=== PATIENT | male | born 1935 | race Caucasian/White ===

== ENCOUNTER 2017-01-29 12:16 | Inpatient (IN) | payer OTHER, MEDICARE ==
[~2017-01-29] VITALS: Ht 162.6 cm; Wt 66.7 kg
[~2017-01-29 12:16] MED LIST: ASPI325T4 PO; ATOR-22 PO; CARV6.25 PO; LISI-725 PO
[2017-01-29 12:55] LABS: BASO % 0.5 %; BASO ABS # 0.03 K/uL (0-0.2); COMPLETE YES; EOS % 2.7 %; HEMATOCRIT 38.2 % (42-52); IG% 0.3 %; LYMPH % 18.5 %; LYMPH ABS # 1.23 K/uL (1.2-3.4); MEAN CELL VOLUME 86.8 fL (80-100); MEAN CORPUSCULAR HEMOGLOBIN 28.6 pg (25-34); MEAN PLATELET VOLUME 9.4 fL (7.4-10.4); MONO % 12.5 %; NEUT % 65.5 %; PLATELET COUNT 173 K/uL (130-400); WHITE BLOOD COUNT 6.64 K/uL (4.8-10.8)
[2017-01-29 13:12] LABS: BUN/CREATININE RATIO 21.5 (10-20); CALCIUM 8.9 mg/dl (8.5-10.1); CREATININE 1.5 mg/dl (0.60-1.40); POTASSIUM 4.3 mmol/L (3.5-5.1)
--- NOTE | 2017-01-29 13:13 | DIAGNOSTIC IMAGING REPORT ---
SINGLE VIEW PELVIS CLINICAL HISTORY: Fall with left hip pain. FINDINGS: An AP pelvic radiograph is obtained. No prior studies are available for comparison at the time of dictation. The skeletal structures are osteopenic. There is a distracted and angulated oblique fracture through the subtrochanteric left femur. Overlying soft tissue edema is noted. No additional fracture is seen in the right hip or the bony pelvis. Moderate arthritic change is noted in the hips. Lumbosacral spondylosis is partially imaged. There is a nonobstructed abdominal bowel gas pattern. IMPRESSION: 1. Distracted and angulated subtrochanteric fracture of the left femur with overlying soft tissue edema. 2. No additional fracture is identified in the bony pelvis or right hip. 3. Osteopenia and degenerative change as above. Electronically signed by: Gómez Santana M.D. 01/29/2017 1:12 PM Dictated Date/Time: 01/29/2017 1:10 PM
[2017-01-29 13:15] LABS: ALB/GLOB RATIO 1.1 (0.9-2)
[2017-01-29] MEDS ORDERED: MoRPHine SULFATE 4 MG/ML 1 ML CARP\\VIAL IV STA ×2 (13:15→13:17)
--- NOTE | 2017-01-29 13:16 | DIAGNOSTIC IMAGING REPORT ---
LEFT FEMUR 2 VIEWS CLINICAL HISTORY: Left hip injury. Fall. FINDINGS: AP and crosstable lateral views of the left femur are correlated with pelvic radiograph performed concurrently on 01/29/2017. The skeletal structures are osteopenic. There is an angulated spiral fracture through the subtrochanteric left femur. There is posterior distraction of the distal fragment by at least 3 cm. There is also mild overriding of the fragments. The distal femur is intact. Arthritic change is present in the left hip and knee. The visualized left hemipelvis appears intact. Significant soft tissue edema is present in the upper thigh. Atherosclerotic calcification is noted in the femoral and popliteal arteries. IMPRESSION: 1. There is a distracted, angulated, and mildly overriding fracture of the subtrochanteric left femur. 2. The remainder of the femur appears intact. 3. Soft tissue edema is present in the left upper thigh. Electronically signed by: Gómez Santana M.D. 01/29/2017 1:14 PM Dictated Date/Time: 01/29/2017 1:12 PM
[2017-01-29] MEDS ORDERED: SODIUM CHLORIDE 0.9% 1000ML 1,000 ML IV STA (13:17)
--- NOTE | 2017-01-29 13:17 | DIAGNOSTIC IMAGING REPORT ---
SINGLE VIEW CHEST CLINICAL HISTORY: Fall. Left leg injury. FINDINGS: An AP, portable, supine chest radiograph is compared to study dated 12/25/2013. The examination is degraded by portable technique and patient rotation. The heart is mildly enlarged and there is atherosclerotic calcification of the thoracic aorta. The pulmonary vasculature is noncongested. The lungs and pleural spaces are clear. No pneumothorax is seen. The skeletal structures are osteopenic. The bony thorax is grossly intact. IMPRESSION: Mild cardiac enlargement with no acute cardiopulmonary abnormality. Electronically signed by: Gómez Santana M.D. 01/29/2017 1:15 PM Dictated Date/Time: 01/29/2017 1:14 PM
[2017-01-29] MEDS ORDERED: OPTIRAY 320 IV PRN (13:30)
[2017-01-29 13:50] LABS: PARTIAL THROMBOPLASTIN RATIO 0.8; PROTHROMBIN TIME (PATIENT) 10.9 SECONDS (9.0-12.0)
--- NOTE | 2017-01-29 13:58 | DIAGNOSTIC IMAGING REPORT ---
CT SCAN OF THE BRAIN WITHOUT IV CONTRAST CLINICAL HISTORY: Fall with head injury. COMPARISON STUDY: MRI of the brain dated 03/26/2016. TECHNIQUE: Unenhanced axial CT scan of the brain is performed from the vertex to the skull base. FINDINGS: Brain parenchyma: There are age-related involutional changes noting mild subcortical and periventricular microangiopathic change. There is no hemorrhage, mass effect, or evidence of acute territorial ischemia by CT criteria. López-white matter is preserved. No extra-axial fluid collection is seen. Ventricles, sulci, cisterns: Prominent secondary to involutional change. Intracranial vasculature: There is atherosclerotic calcification of the cavernous carotid arteries. Calvarium: The skeletal structures are osteopenic. There is no depressed calvarial fracture. Sinuses and mastoids: The visualized paranasal sinuses are clear. The mastoid air cells are well pneumatized. Soft tissue calcification is incidentally noted involving the external auditory canal bilaterally. Orbits: The bony orbits are grossly intact. IMPRESSION: There is no hemorrhage, mass effect, or evidence of acute territorial ischemia by CT criteria. Electronically signed by: Gómez Santana M.D. 01/29/2017 1:51 PM Dictated Date/Time: 01/29/2017 1:49 PM
--- NOTE | 2017-01-29 13:58 | DIAGNOSTIC IMAGING REPORT ---
CT SCAN OF THE CERVICAL SPINE CLINICAL HISTORY: Trauma. Fall from ladder. COMPARISON STUDY: No priors. TECHNIQUE: CT scan of the cervical spine is performed from the skull base to the upper thoracic spine. Images are reviewed in the axial, sagittal, and coronal planes. IV contrast was not administered for this examination. FINDINGS: Skeletal structures: The skeletal structures are osteopenic. There is no evidence of fracture or subluxation involving the cervical spine. Vertebral body height and alignment are maintained. The odontoid process and lateral masses are intact. The atlantoaxial articulation is preserved noting productive degenerative change. The spinous processes appear intact. Anterior osteophytes are seen throughout. There is moderate multilevel cervical spondylosis. Uncovertebral and facet arthropathy contribute sterile foraminal narrowing at several levels. Intervertebral discs: There is moderate degenerative disc space narrowing at C5-C6, C6-C7, and C7-T1. Central canal: Posterior disc osteophyte complexes at C5-C6 and C6-C7 likely contribute to mild acquired compromise of the central canal. Soft tissues: The prevertebral and paraspinous soft tissues are within normal limits. There is advanced atherosclerotic calcification of the carotid bulbs. Calcified tonsilliths are observed. Calvarium: The visualized calvarium at the skull base appears intact. Brain parenchyma: Partially visualized brain parenchyma the skull base is within normal limits noting age-related involutional change. Sinuses and mastoids: The visualized paranasal sinuses are clear. The mastoid air cells are well pneumatized. Lung apices: Clear as visualized. IMPRESSION: 1. There is no evidence of fracture or subluxation involving the cervical spine. 2. Osteopenia and spondylotic change as above. Electronically signed by: Gómez Santana M.D. 01/29/2017 1:56 PM Dictated Date/Time: 01/29/2017 1:52 PM
--- NOTE | 2017-01-29 14:17 | DIAGNOSTIC IMAGING REPORT ---
CT SCAN OF THE CHEST, ABDOMEN, AND PELVIS WITH IV CONTRAST CLINICAL HISTORY: Trauma. Fall from ladder. COMPARISON STUDY: Chest x-ray dated 01/29/2017. Renal ultrasound dated 12/08/2012. TECHNIQUE: Following the IV administration of 93 of Optiray 320, CT scan of the chest, abdomen, and pelvis was performed from the thoracic inlet to the proximal femora. Images are reviewed in the axial, sagittal, and coronal planes. IV contrast was administered without complication. Automated dose control exposure was utilized. The examination is degraded by streak artifact from the patient's arms which could not be elevated above the chest. CT DOSE: 2460.04 mGy.cm FINDINGS: CHEST: Thyroid: Imaged portions of the thyroid gland are normal in size and attenuation. Thoracic aorta: There is atherosclerotic calcification of the thoracic aorta, which is normal in caliber and demonstrates standard 3-vessel arch anatomy. No dissection is seen. Pulmonary vasculature: The pulmonary trunk is normal in caliber. There are no filling defects identified in the central pulmonary vessels to indicate pulmonary was. Note that this examination was not protocoled for evaluation of the pulmonary arteries. Heart: The heart is mildly enlarged and without pericardial effusion. There are coronary artery calcifications. Lungs and pleural spaces: There is no airspace consolidation, pleural effusion, or pneumothorax. The trachea and central airways are clear. Mediastinum: There is no mediastinal hematoma or lymphadenopathy. Krissy: Clear. Axillae: There is no axillary lymphadenopathy. Bony thorax: The skeletal structures are osteopenic. There are mild and age indeterminant superior endplate compression deformities of T4 and T6. The bony thorax is otherwise intact. No lytic or blastic lesions are identified. ABDOMEN AND PELVIS: Liver: The contrast-enhanced liver is normal in size, contour, and attenuation. There is no intrahepatic or ductal dilatation. The hepatic veins and portal veins are patent. Gallbladder: Unremarkable. Spleen: Normal in size and attenuation. Pancreas: Moderately atrophic and grossly unremarkable. Adrenal glands: Unremarkable. Kidneys: The contrast enhanced kidneys are atrophic and without hydronephrosis. The kidneys enhance symmetrically. Renal cysts measure up to 5.5 cm. Additional subcentimeter cortical hypodensities also likely represent cysts but are too small for definitive characterization. Abdominal vasculature: The abdominal aorta is normal in course and caliber noting moderate atherosclerotic calcification. 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 There is mild stenosis at the origin of the celiac artery with poststenotic dilatation which measures up to 10 mm. Bowel: The small bowel and colon are normal in course and caliber. There is mild colonic diverticulosis without CT evidence of acute diverticulitis. The appendix is well-visualized and normal. Peritoneum: There is no intraperitoneal free air or abdominal ascites. There is a small fat-containing umbilical hernia. Lymphadenopathy: None. Pelvic viscera: The prostate gland is enlarged and heterogeneous, measuring 5.5 cm in transverse diameter. There is median lobe hypertrophy. The bladder is normal as visualized. Skeletal structures: The skeletal structures are osteopenic. The lumbosacral spine and bony pelvis appear intact. There is a comminuted fracture of the left proximal femur. Nondistracted fracture is seen through the left femoral neck and extending through the intertrochanteric region. There is distracted fracture of the subtrochanteric left femur. No lytic or blastic lesions are seen. Moderate lumbosacral spondylosis is observed. Soft tissues: There is a large hematoma in the left thigh around the distracted fracture, and is likely at least partially intramuscular in location. This measures approximately 9.5 x 6 cm in maximum transaxial diameter. Small foci of active extravasation are seen within the hematoma on axial images #443, #464, and #482. These measure up to 1.7 cm. This is remote from the femoral artery. IMPRESSION: 1. The lungs are clear. No pneumothorax is seen. 2. Cardiomegaly. 3. There are mild and age indeterminant superior end plate compression deformities of T4 and T6. Correlate for point tenderness at these levels. The remainder the bony thorax appears intact. 4. There is no evidence of solid organ injury in the abdomen or pelvis. 5. The lumbosacral spine and bony pelvis are intact. 6. There is a comminuted fracture of the left proximal femur which involves the femoral neck, the intertrochanteric region, and the subtrochanteric region. The subtrochanteric fragments are distracted. 7. There is a large hematoma identified in the left thigh around the left femoral fracture. This is at least partially intramuscular, and there are several small foci of active extravasation identified which measure up to 1.7 cm. 8. Mild colonic diverticulosis without CT evidence of acute diverticulitis. 9. Prostatomegaly. 10. 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 11. There is mild stenosis at the origin of the celiac artery with poststenotic dilatation. 12. Additional findings as above. Electronically signed by: Gómez Santana M.D. 01/29/2017 2:16 PM Dictated Date/Time: 01/29/2017 1:57 PM
--- NOTE | 2017-01-29 14:29 | EMERGENCY ROOM VISIT NOTE ---
History First contact with patient: 13:27 Chief Complaint: FALL Stated Complaint: FELL FROM LADDER/ 5' LF LEG DEFORMITY History of Present Illness The patient is a 81 year old male who presents to the Emergency Room with complaints of a fall. The patient was on his deck approximately 3 steps up on a stepping stool when he describes that he lost consciousness and fell. He does not recall falling to the ground and was out of consciousness for several minutes until EMS arrived at his house. His only medical condition is hypertension for which he is compliant with his home medications. He denies any difference in his home routine and had a normal morning with no change in sleep or diet. He says that normally if he looses balance he is able to catch himself and step down but this event he does not even recall losing his balance or any events prior to waking up. The patient currently has left hip pain that is 5/10 at rest and is unable to move his left leg without excruciating pain. He does not recall hitting his head but does state he has a new bump over the left side of his forehead. He denies any headache, changes in vision, chest pain, abdominal pain, fever, chills, or any other acute complaints. Review of Systems See HPI for pertinent positives and negatives. A total of ten systems were reviewed and were otherwise negative. Past Medical/Surgical History Medical Problems: (1) Hypertension Family History Diabetes mellitus FHx: lung disease Kidney disease Kidney stones Social History Smoking Status: Never Smoker Alcohol Use: none Marital Status: Occupation Status: retired Current/Historical Medications Scheduled Aspirin (Aspirin), 162.5 MG PO DAILY Atorvastatin (Lipitor), 20 MG PO DAILY Carvedilol (Coreg), 9.375 TAB PO BID Lisinopril (Zestril), 20 MG PO BID Allergies Coded Allergies: BEE STING (Verified Allergy, Unknown, SWELLING, 01/29/17) Physical Exam Vital Signs Date Time Temp Pulse Resp B/P (MAP) Pulse Ox O2 Delivery O2 Flow Rate FiO2 01/29/17 16:00 67 16 178/81 95 Room Air 01/29/17 15:00 67 16 167/73 99 Room Air 01/29/17 14:11 65 18 207/87 95 Room Air 01/29/17 13:23 57 17 190/82 98 Room Air 01/29/17 12:29 56 01/29/17 12:27 36.9 61 20 199/110 99 Room Air Physical Exam GENERAL: Awake, alert, well-appearing, in mild distress HENT: 1cm abrasion with associated swelling over the left frontal area of his skill EYES: Normal conjunctiva. Sclera non-icteric. NECK: Supple. No nuchal rigidity. RESPIRATORY: Clear to auscultation. CARDIAC: Regular rate, normal rhythm. Extremities warm and well perfused. Pulses equal. ABDOMEN: Soft, non-distended. No tenderness to palpation. RECTAL: Deferred. MUSCULOSKELETAL: Chest examination reveals no tenderness. LOWER EXTREMITIES: Calves are equal size bilaterally and non-tender. Tenderness with any manipulation of the left lower extremity. NEURO: Normal sensorium. Sensation in lower extremity intact. Able to plantar flex and dorsiflex his left foot but unable to assess strength due to severe pain with movement of the left leg. SKIN: As noted above Medical Decision & Procedures Laboratory Results 01/29/17 12:45 Red Blood Count 4.40, Mean Corpuscular Volume 86.8, Mean Corpuscular Hemoglobin 28.6, Mean Corpuscular Hemoglobin Concent 33.0, Mean Platelet Volume 9.4, Neutrophils (%) (Auto) 65.5, Lymphocytes (%) (Auto) 18.5, Monocytes (%) (Auto) 12.5, Eosinophils (%) (Auto) 2.7, Basophils (%) (Auto) 0.5, Neutrophils # (Auto ) 4.35, Lymphocytes # (Auto) 1.23, Monocytes # (Auto) 0.83, Eosinophils # (Auto ) 0.18, Basophils # (Auto) 0.03 01/29/17 12:45 Test 01/29/17 12:45 White Blood Count 6.64 K/uL (4.8-10.8) Red Blood Count 4.40 M/uL (4.7-6.1) Hemoglobin 12.6 g/dL (14.0-18.0) Hematocrit 38.2 % (42-52) Mean Corpuscular Volume 86.8 fL (80-100) Mean Corpuscular Hemoglobin 28.6 pg (25-34) Mean Corpuscular Hemoglobin Concent 33.0 g/dl (32-36) Platelet Count 173 K/uL (130-400) Mean Platelet Volume 9.4 fL (7.4-10.4) Neutrophils (%) (Auto) 65.5 % Lymphocytes (%) (Auto) 18.5 % Monocytes (%) (Auto) 12.5 % Eosinophils (%) (Auto) 2.7 % Basophils (%) (Auto) 0.5 % Neutrophils # (Auto) 4.35 K/uL (1.4-6.5) Lymphocytes # (Auto) 1.23 K/uL (1.2-3.4) Monocytes # (Auto) 0.83 K/uL (0.11-0.59) Eosinophils # (Auto) 0.18 K/uL (0-0.5) Basophils # (Auto) 0.03 K/uL (0-0.2) RDW Standard Deviation 39.8 fL (36.4-46.3) RDW Coefficient of Variation 12.4 % (11.5-14.5) Immature Granulocyte % (Auto) 0.3 % Immature Granulocyte # (Auto) 0.02 K/uL (0.00-0.02) Prothrombin Time 10.9 SECONDS (9.0-12.0) Prothromb Time International Ratio 1.0 (0.9-1.1) Activated Partial Thromboplast Time 21.7 SECONDS (21.0-31.0) Partial Thromboplastin Ratio 0.8 Anion Gap 6.0 mmol/L (3-11) Est Creatinine Clear Calc Drug Dose 31.3 ml/min Estimated GFR () 49.2 Estimated GFR (Non- 42.4 BUN/Creatinine Ratio 21.5 (10-20) Calcium Level 8.9 mg/dl (8.5-10.1) Total Bilirubin 0.9 mg/dl (0.2-1) Aspartate Amino Transf (AST/SGOT) 19 U/L (15-37) Alanine Aminotransferase (ALT/SGPT) 21 U/L (12-78) Alkaline Phosphatase 91 U/L (45-117) Troponin I < 0.015 ng/ml (0-0.045) Total Protein 7.2 gm/dl (6.4-8.2) Albumin 3.7 gm/dl (3.4-5.0) Globulin 3.5 gm/dl (2.5-4.0) Albumin/Globulin Ratio 1.1 (0.9-2) Medications Administered Medications (Trade) Dose Ordered Sig/Lai Route Start Time Stop Time Status Last Admin Dose Admin Morphine Sulfate (MoRPHine SULFATE INJ) 4 mg NOW STAT IV 01/29/17 13:15 01/29/17 13:16 DC 01/29/17 13:28 4 MG Morphine Sulfate (MoRPHine SULFATE INJ) 4 mg NOW STAT IV 01/29/17 13:17 01/29/17 13:19 DC 01/29/17 14:26 4 MG Sodium Chloride 1,000 ml @ 250 mls/hr Q4H STAT IV 01/29/17 13:17 01/29/17 17:16 01/29/17 13:28 250 MLS/HR Medical Decision Patient is an 81 year old male that experienced a possible syncopal episode and fall Differential diagnosis considered includes syncope, vaso-vagal event, stroke, TIA, hip fracture, epidural hematoma, subdural hematoma, and other etiologies were considered - Morphine 4mg - CT Head, CT C-Spine, CT-Chest, CT- Abd/Pelvis - PT/INR, CBC, BMP Impression Primary Impression: Fall Additional Impression: Femur fracture, left Patient is an 81 year old male with a left proximal femur fracture CT Abd/ Pelvis revealed a comminuted fracture of the left proximal femur as well as a large hematoma identified in the left thigh around the left femoral fracture - Other imaging revealed no acute abnormalities - Discussed CT findings including Femoral fracture in addition to active extravasation to Dr. Lara of Orthopaedics and states patient will be scheduled for surgery tomorrow and to admit to medicine - Patient will be medically managed by [facility] Departure Information Dispostion Admitted as an inpatient Condition GOOD Referrals Eusebio Rivera M.D. (PCP) Patient Instructions [facility] Problem Qualifiers Primary Impression: Fall Encounter type: initial encounter Qualified Codes: W19.XXXA - Unspecified fall, initial encounter Additional Impression: Femur fracture, left Encounter type: initial encounter Femur location: intertrochanteric Fracture type: closed Fracture alignment: nondisplaced Qualified Codes: S72.145A - Nondisplaced intertrochanteric fracture of left femur, initial encounter for closed fracture
--- NOTE | 2017-01-29 16:09 | EMERGENCY ROOM VISIT NOTE ---
ED Visit Note First contact with patient: 13:17 Patient is a 81-year-old man brought in secondary to fall and trauma. Initially nurses alerted me of patient's status and concern for additional injuries and orders were placed in addition to their protocol orders. Resident examined the patient first and I examined the patient following his return from CAT scan. Additional labs and imaging ordered by myself on the patient based on risk of significant injury due to history. Patient's CAT scans otherwise reassuring no additional trauma noted, patient with isolated extremity fracture. Patient is a very good 81-year-old only on 4 medications, no anticoagulation does take an aspirin daily. Patient with stable vital signs here throughout, pain controlled with morphine. I evaluated the patient at bedside myself and discussed all results with the patient and their family. Longterm contacted the hospitalist and spoke with orthopedics also regarding the patient's admission and likely need for surgery.
[2017-01-29] MEDS ORDERED: ONDANSETRON INJ 2 MG/ML 2 ML VIAL IV PRN (17:30)
[2017-01-29] MEDS ORDERED: ACETAMINOPHEN 325 MG TAB PO PRN (17:30)
[2017-01-29 17:54] VITALS: BP 174/95; PULSE 71; TEMP 36.9; O2SAT 98; Ht 162.6 cm; Wt 66.7 kg
--- NOTE | 2017-01-29 18:27 | History and Physical ---
History & Physical Date & Time of Service: Jan 29, 2017 at 18:10 Chief Complaint: Fell From Ladder/ 5' Lf Leg Deformity Primary Care Physician: Eusebio Rivera M.D. History of Present Illness Source: patient, family, spouse The patient is an 81-year-old male who presents to the emergency department after a fall from from third step of a stepping stool. The patient does not remember the incident, he cannot say whether he mechanically fell to the ground or whether he had a preceding incident. He was reportedly unconscious for several minutes until EMS arrived. He has had instances in the past where he felt like he had lost his balance, but was usually able to catch himself and then stepdown off of the bladder. His primary complaint is left hip pain, and is unable to move his left leg without severe pain. He does not remember hitting his head, but has a bump over the left side of his forehead. Past Medical/Surgical History Medical Problems: (1) Hypertension Status: Chronic Family History Diabetes mellitus FHx: lung disease Kidney disease Kidney stones Social History Smoking Status: Never Smoker Smokeless Tobacco Use: No Alcohol Use: none Drug Use: none Marital Status: Housing status: lives with family Occupational Status: retired Multi-Drug Resistant Organisms History of MDRO: No Allergies Coded Allergies: BEE STING (Verified Allergy, Unknown, SWELLING, 01/29/17) Home Medications Scheduled Aspirin (Aspirin), 162.5 MG PO DAILY Atorvastatin (Lipitor), 20 MG PO DAILY Carvedilol (Coreg), 9.375 MG PO BID Lisinopril (Zestril), 20 MG PO BID Review of Systems The patient denies chest pain, palpitations, shortness of breath, cough, sore throat, fevers, chills, sweats, weight change, fatigue, nausea, vomiting, abdominal pain, pelvic pain, blood in urine or stool, dysuria, urinary frequency or urgency, lightheadedness, dizziness, headache, rash, abnormal bruising or bleeding, generalized weakness, night sweats, or allergy symptoms. The review of systems is otherwise negative other than for that already noted above, and at least 10 systems have been reviewed. Physical Exam Vital Signs Date Time Temp Pulse Resp B/P (MAP) Pulse Ox O2 Delivery O2 Flow Rate FiO2 01/29/17 17:00 71 18 174/95 94 Room Air 01/29/17 16:35 70 01/29/17 16:00 67 16 178/81 95 Room Air 01/29/17 15:00 67 16 167/73 99 Room Air 01/29/17 14:11 65 18 207/87 95 Room Air 01/29/17 13:23 57 17 190/82 98 Room Air 01/29/17 12:29 56 01/29/17 12:27 36.9 61 20 199/110 99 Room Air The patient is awake, well-developed and adequately nourished, alert and oriented 3, normocephalic and atraumatic, lying in bed and in no acute distress. HEENT--PERRL, EOMI, mucous membranes and oropharynx normal. Neck--supple, no JVD or bruits, thyroid normal, trachea midline, no adenopathy. Heart--normal S1 and S2, no extra beats, no murmurs, rubs or gallops. Lungs--clear bilaterally with good air movement, no respiratory distress, no accessory muscle use. Abdomen--normal bowel sounds and soft, nontender and nondistended, no hernias or masses, no organomegaly. Extremities--no cyanosis, clubbing or edema. There are good distal pulses b/l. Dermatologic--normal skin turgor, normal color, warm and dry, no abnormal lymph nodes, no rash. Neurologic--cranial nerves II through XII grossly intact, motor and sensory examination normal. Rheumatologic--left hip swelling and tenderness to touch. Psychiatric--normal affect. Diagnostics Laboratory Results Results Past 24 Hours Test 01/29/17 12:45 01/29/17 17:24 Range/Units White Blood Count 6.64 4.8-10.8 K/uL Red Blood Count 4.40 4.7-6.1 M/uL Hemoglobin 12.6 14.0-18.0 g/dL Hematocrit 38.2 42-52 % Mean Corpuscular Volume 86.8 80-100 fL Mean Corpuscular Hemoglobin 28.6 25-34 pg Mean Corpuscular Hemoglobin Concent 33.0 32-36 g/dl Platelet Count 173 130-400 K/uL Mean Platelet Volume 9.4 7.4-10.4 fL Neutrophils (%) (Auto) 65.5 % Lymphocytes (%) (Auto) 18.5 % Monocytes (%) (Auto) 12.5 % Eosinophils (%) (Auto) 2.7 % Basophils (%) (Auto) 0.5 % Neutrophils # (Auto) 4.35 1.4-6.5 K/uL Lymphocytes # (Auto) 1.23 1.2-3.4 K/uL Monocytes # (Auto) 0.83 0.11-0.59 K/uL Eosinophils # (Auto) 0.18 0-0.5 K/uL Basophils # (Auto) 0.03 0-0.2 K/uL RDW Standard Deviation 39.8 36.4-46.3 fL RDW Coefficient of Variation 12.4 11.5-14.5 % Immature Granulocyte % (Auto) 0.3 % Immature Granulocyte # (Auto) 0.02 0.00-0.02 K/uL Prothrombin Time 10.9 9.0-12.0 SECONDS Prothromb Time International Ratio 1.0 0.9-1.1 Activated Partial Thromboplast Time 21.7 21.0-31.0 SECONDS Partial Thromboplastin Ratio 0.8 Sodium Level 139 136-145 mmol/L Potassium Level 4.3 3.5-5.1 mmol/L Chloride Level 107 98-107 mmol/L Carbon Dioxide Level 26 21-32 mmol/L Anion Gap 6.0 3-11 mmol/L Blood Urea Nitrogen 32 7-18 mg/dl Creatinine 1.50 0.60-1.40 mg/dl Est Creatinine Clear Calc Drug Dose 31.3 ml/min Estimated GFR () 49.2 Estimated GFR (Non- 42.4 BUN/Creatinine Ratio 21.5 10-20 Random Glucose 114 70-99 mg/dl Calcium Level 8.9 8.5-10.1 mg/dl Total Bilirubin 0.9 0.2-1 mg/dl Aspartate Amino Transf (AST/SGOT) 19 15-37 U/L Alanine Aminotransferase (ALT/SGPT) 21 12-78 U/L Alkaline Phosphatase 91 45-117 U/L Troponin I < 0.015 0-0.045 ng/ml Total Protein 7.2 6.4-8.2 gm/dl Albumin 3.7 3.4-5.0 gm/dl Globulin 3.5 2.5-4.0 gm/dl Albumin/Globulin Ratio 1.1 0.9-2 Creatine Kinase MB Ratio 0-3.0 Diagnostic Radiology Patient Name: GLEN GUERRIER Unit Number: [id number] Dictated: 01/29/171311 Transcribed: 01/29/171311 EV Printed Date/Time: [~ rep prt dt]/[~ rep prt tm] [~ rep ct labl] - [~ rep ct ivnm] [facility] Radiology Department [place] [id number] Dictated: 01/29/171311 Transcribed: 01/29/171311 EV Printed Date/Time: [~ rep prt dt]/[~ rep prt tm] [~ rep ct labl] - [~ rep ct ivnm] [~ rep ct add3]] LEFT FEMUR 2 VIEWS CLINICAL HISTORY: Left hip injury. Fall. FINDINGS: AP and crosstable lateral views of the left femur are correlated with pelvic radiograph performed concurrently on 01/29/2017. The skeletal structures are osteopenic. There is an angulated spiral fracture through the subtrochanteric left femur. There is posterior distraction of the distal fragment by at least 3 cm. There is also mild overriding of the fragments. The distal femur is intact. Arthritic change is present in the left hip and knee. The visualized left hemipelvis appears intact. Significant soft tissue edema is present in the upper thigh. Atherosclerotic calcification is noted in the femoral and popliteal arteries. IMPRESSION: 1. There is a distracted, angulated, and mildly overriding fracture of the subtrochanteric left femur. 2. The remainder of the femur appears intact. 3. Soft tissue edema is present in the left upper thigh. Electronically signed by: Gómez Santana M.D. 01/29/2017 1:14 PM Dictated Date/Time: 01/29/2017 1:12 PM The status of this report is Signed. Draft = Not yet reviewed or approved by Radiologist. Signed = Reviewed and approved by Radiologist. <AttendingPhy></AttendingPhy> <FamilyPhy>Eusebio Rivera M.D.</FamilyPhy> < PrimaryPhy>Eusebio Rivera M.D.</PrimaryPhy> <UnitNumber>[id number]</ UnitNumber> <VisitNumber>[id number]</VisitNumber> <PatientName>GLEN GUERRIER</ PatientName> <DateOfBirth>1935</DateOfBirth> <Location>[facility]</Location> < ServiceDate>01/29/17</ServiceDate> <MNE>ESINDI</MNE> <OrderingPhy>ED, PROTOCOL</ OrderingPhy> <OrderingPhyMNE>f rep ord dr blanton</OrderingPhyMNE> <DictatingPhyMNE> f rep dict dr blanton</DictatingPhyMNE> <CCListMNE>f rep ct mne</CCListMNE> < AdmittingPhyMNE>f pt admit dr blanton</AdmittingPhyMNE> <AttendingPhyMNE>f pt attend dr blanton</AttendingPhyMNE> <ConsultingPhyMNE>f pt consult dr blanton</ConsultingPhyMNE> <FamilyPhyMNE>f pt fam dr blanton</FamilyPhyMNE> <OtherPhyMNE>f pt other dr blanton</OtherPhyMNE> < PrimaryPhyMNE>f pt prim care dr blanton</PrimaryPhyMNE> <ReferringPhyMNE>f pt referring dr blanton</ReferringPhyMNE> Patient Name: GLEN GUERRIER Unit Number: [id number] Dictated: 01/29/171309 Transcribed: 01/29/171309 EV Printed Date/Time: [~ rep prt dt]/[~ rep prt tm] [~ rep ct labl] - [~ rep ct ivnm] [facility] Radiology Department [place] [id number] Dictated: 01/29/171309 Transcribed: 01/29/171309 EV Printed Date/Time: [~ rep prt dt]/[~ rep prt tm] [~ rep ct labl] - [~ rep ct ivnm] SINGLE VIEW PELVIS CLINICAL HISTORY: Fall with left hip pain. FINDINGS: An AP pelvic radiograph is obtained. No prior studies are available for comparison at the time of dictation. The skeletal structures are osteopenic. There is a distracted and angulated oblique fracture through the subtrochanteric left femur. Overlying soft tissue edema is noted. No additional fracture is seen in the right hip or the bony pelvis. Moderate arthritic change is noted in the hips. Lumbosacral spondylosis is partially imaged. There is a nonobstructed abdominal bowel gas pattern. IMPRESSION: 1. Distracted and angulated subtrochanteric fracture of the left femur with overlying soft tissue edema. 2. No additional fracture is identified in the bony pelvis or right hip. 3. Osteopenia and degenerative change as above. Electronically signed by: Gómez Santana M.D. 01/29/2017 1:12 PM Dictated Date/Time: 01/29/2017 1:10 PM The status of this report is Signed. Draft = Not yet reviewed or approved by Radiologist. Signed = Reviewed and approved by Radiologist. <AttendingPhy></AttendingPhy> <FamilyPhy>Eusebio Rivera M.D.</FamilyPhy> < PrimaryPhy>Eusebio Rivera M.D.</PrimaryPhy> <UnitNumber>[id number]</ UnitNumber> <VisitNumber>[id number]</VisitNumber> <PatientName>GLEN GUERRIER</ PatientName> <DateOfBirth>1935</DateOfBirth> <Location>[facility]</Location> < ServiceDate>01/29/17</ServiceDate> <MNE>ESINDI</MNE> <OrderingPhy>ED, PROTOCOL</ OrderingPhy> <OrderingPhyMNE>f rep ord dr blanton</OrderingPhyMNE> <DictatingPhyMNE> f rep dict dr blanton</DictatingPhyMNE> <CCListMNE>f rep ct franny</CCListMNE> < AdmittingPhyMNE>f pt admit dr blanton</AdmittingPhyMNE> <AttendingPhyMNE>f pt attend dr blanton</AttendingPhyMNE> <ConsultingPhyMNE>f pt consult dr blanton</ConsultingPhyMNE> <FamilyPhyMNE>f pt fam dr blanton</FamilyPhyMNE> <OtherPhyMNE>f pt other dr blanton</OtherPhyMNE> < PrimaryPhyMNE>f pt prim care dr blanton</PrimaryPhyMNE> <ReferringPhyMNE>f pt referring dr mne</ReferringPhyMNE> Patient Name: GLEN GUERRIER Unit Number: [id number] Dictated: 01/29/171313 Transcribed: 01/29/171313 EV Printed Date/Time: [~ rep prt dt]/[~ rep prt tm] [~ rep ct labl] - [~ rep ct ivnm] [facility] [place] [address] Dictated: 01/29/171313 Transcribed: 01/29/171313 EV Printed Date/Time: [~ rep prt dt]/[~ rep prt tm] [~ rep ct labl] - [~ rep ct ivnm] SINGLE VIEW CHEST CLINICAL HISTORY: Fall. Left leg injury. FINDINGS: An AP, portable, supine chest radiograph is compared to study dated 12/25/2013. The examination is degraded by portable technique and patient rotation. The heart is mildly enlarged and there is atherosclerotic calcification of the thoracic aorta. The pulmonary vasculature is noncongested. The lungs and pleural spaces are clear. No pneumothorax is seen. The skeletal structures are osteopenic. The bony thorax is grossly intact. IMPRESSION: Mild cardiac enlargement with no acute cardiopulmonary abnormality. Electronically signed by: Gómez Santana M.D. 01/29/2017 1:15 PM Dictated Date/Time: 01/29/2017 1:14 PM The status of this report is Signed. Draft = Not yet reviewed or approved by Radiologist. Signed = Reviewed and approved by Radiologist. <AttendingPhy></AttendingPhy> <FamilyPhy>Eusebio Rivera M.D.</FamilyPhy> < PrimaryPhy>Eusebio Rivera M.D.</PrimaryPhy> <UnitNumber>[id number]</ UnitNumber> <VisitNumber>[id number]</VisitNumber> <PatientName>GLEN GUERRIER</ PatientName> <DateOfBirth>1935</DateOfBirth> <Location>[facility]</Location> < ServiceDate>01/29/17</ServiceDate> <MNE>ESINDI</MNE> <OrderingPhy>ED, PROTOCOL</ OrderingPhy> <OrderingPhyMNE>f rep ord dr mne</OrderingPhyMNE> <DictatingPhyMNE> f rep dict dr blanton</DictatingPhyMNE> <CCListMNE>f rep ct mne</CCListMNE> < AdmittingPhyMNE>f pt admit dr blanton</AdmittingPhyMNE> <AttendingPhyMNE>f pt attend dr blanton</AttendingPhyMNE> <ConsultingPhyMNE>f pt consult dr blanton</ConsultingPhyMNE> <FamilyPhyMNE>f pt fam dr blanton</FamilyPhyMNE> <OtherPhyMNE>f pt other dr blanton</OtherPhyMNE> < PrimaryPhyMNE>f pt prim care dr blanton</PrimaryPhyMNE> <ReferringPhyMNE>f pt referring dr blanton</ReferringPhyMNE> Patient Name: GLEN GUERRIER Unit Number: [id number] Dictated: 01/29/171313 Transcribed: 01/29/171313 EV Printed Date/Time: [~ rep prt dt]/[~ rep prt tm] [~ rep ct labl] - [~ rep ct ivnm] [facility] [place] [address] Dictated: 01/29/171313 Transcribed: 01/29/171313 EV Printed Date/Time: [~ rep prt dt]/[~ rep prt tm] [~ rep ct labl] - [~ rep ct ivnm] SINGLE VIEW CHEST CLINICAL HISTORY: Fall. Left leg injury. FINDINGS: An AP, portable, supine chest radiograph is compared to study dated 12/25/2013. The examination is degraded by portable technique and patient rotation. The heart is mildly enlarged and there is atherosclerotic calcification of the thoracic aorta. The pulmonary vasculature is noncongested. The lungs and pleural spaces are clear. No pneumothorax is seen. The skeletal structures are osteopenic. The bony thorax is grossly intact. IMPRESSION: Mild cardiac enlargement with no acute cardiopulmonary abnormality. Electronically signed by: Gómez Santana M.D. 01/29/2017 1:15 PM Dictated Date/Time: 01/29/2017 1:14 PM The status of this report is Signed. Draft = Not yet reviewed or approved by Radiologist. Signed = Reviewed and approved by Radiologist. <AttendingPhy></AttendingPhy> <FamilyPhy>Eusebio Rivera M.D.</FamilyPhy> < PrimaryPhy>Eusebio Rivera M.D.</PrimaryPhy> <UnitNumber>[id number]</ UnitNumber> <VisitNumber>[id number]</VisitNumber> <PatientName>GLEN GUERRIER</ PatientName> <DateOfBirth>1935</DateOfBirth> <Location>[facility]</Location> < ServiceDate>01/29/17</ServiceDate> <MNE>ESINDI</MNE> <OrderingPhy>ED, PROTOCOL</ OrderingPhy> <OrderingPhyMNE>f rep ord dr blanton</OrderingPhyMNE> <DictatingPhyMNE> f rep dict dr blanton</DictatingPhyMNE> <CCListMNE>f rep ct mne</CCListMNE> < AdmittingPhyMNE>f pt admit dr blanton</AdmittingPhyMNE> <AttendingPhyMNE>f pt attend dr blanton</AttendingPhyMNE> <ConsultingPhyMNE>f pt consult dr blanton</ConsultingPhyMNE> <FamilyPhyMNE>f pt fam dr blanton</FamilyPhyMNE> <OtherPhyMNE>f pt other dr blanton</OtherPhyMNE> < PrimaryPhyMNE>f pt prim care dr blanton</PrimaryPhyMNE> <ReferringPhyMNE>f pt referring dr blanton</ReferringPhyMNE> Patient Name: GLEN GUERRIER Unit Number: [id number] Dictated: 01/29/171356 Transcribed: 01/29/171356 EV Printed Date/Time: [~ rep prt dt]/[~ rep prt tm] [~ rep ct labl] - [~ rep ct ivnm] [facility] [place] [address] Dictated: 01/29/171356 Transcribed: 01/29/171356 EV Printed Date/Time: [~ rep prt dt]/[~ rep prt tm] [~ rep ct labl] - [~ rep ct ivnm] [~ rep ct add3]] CT SCAN OF THE CHEST, ABDOMEN, AND PELVIS WITH IV CONTRAST CLINICAL HISTORY: Trauma. Fall from ladder. COMPARISON STUDY: Chest x-ray dated 01/29/2017. Renal ultrasound dated 12/08/2012. TECHNIQUE: Following the IV administration of 93 of Optiray 320, CT scan of the chest, abdomen, and pelvis was performed from the thoracic inlet to the proximal femora. Images are reviewed in the axial, sagittal, and coronal planes. IV contrast was administered without complication. Automated dose control exposure was utilized. The examination is degraded by streak artifact from the patient's arms which could not be elevated above the chest. CT DOSE: 2460.04 mGy.cm FINDINGS: CHEST: Thyroid: Imaged portions of the thyroid gland are normal in size and attenuation. Thoracic aorta: There is atherosclerotic calcification of the thoracic aorta, which is normal in caliber and demonstrates standard 3-vessel arch anatomy. No dissection is seen. Pulmonary vasculature: The pulmonary trunk is normal in caliber. There are no filling defects identified in the central pulmonary vessels to indicate pulmonary was. Note that this examination was not protocoled for evaluation of the pulmonary arteries. Heart: The heart is mildly enlarged and without pericardial effusion. There are coronary artery calcifications. Lungs and pleural spaces: There is no airspace consolidation, pleural effusion, or pneumothorax. The trachea and central airways are clear. Mediastinum: There is no mediastinal hematoma or lymphadenopathy. Krissy: Clear. Axillae: There is no axillary lymphadenopathy. Bony thorax: The skeletal structures are osteopenic. There are mild and age indeterminant superior endplate compression deformities of T4 and T6. The bony thorax is otherwise intact. No lytic or blastic lesions are identified. ABDOMEN AND PELVIS: Liver: The contrast-enhanced liver is normal in size, contour, and attenuation. There is no intrahepatic or ductal dilatation. The hepatic veins and portal veins are patent. Gallbladder: Unremarkable. Spleen: Normal in size and attenuation. Pancreas: Moderately atrophic and grossly unremarkable. Adrenal glands: Unremarkable. Kidneys: The contrast enhanced kidneys are atrophic and without hydronephrosis. The kidneys enhance symmetrically. Renal cysts measure up to 5.5 cm. Additional subcentimeter cortical hypodensities also likely represent cysts but are too small for definitive characterization. Abdominal vasculature: The abdominal aorta is normal in course and caliber noting moderate atherosclerotic calcification. 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 There is mild stenosis at the origin of the celiac artery with poststenotic dilatation which measures up to 10 mm. Bowel: The small bowel and colon are normal in course and caliber. There is mild colonic diverticulosis without CT evidence of acute diverticulitis. The appendix is well-visualized and normal. Peritoneum: There is no intraperitoneal free air or abdominal ascites. There is a small fat-containing umbilical hernia. Lymphadenopathy: None. Pelvic viscera: The prostate gland is enlarged and heterogeneous, measuring 5.5 cm in transverse diameter. There is median lobe hypertrophy. The bladder is normal as visualized. Skeletal structures: The skeletal structures are osteopenic. The lumbosacral spine and bony pelvis appear intact. There is a comminuted fracture of the left proximal femur. Nondistracted fracture is seen through the left femoral neck and extending through the intertrochanteric region. There is distracted fracture of the subtrochanteric left femur. No lytic or blastic lesions are seen. Moderate lumbosacral spondylosis is observed. Soft tissues: There is a large hematoma in the left thigh around the distracted fracture, and is likely at least partially intramuscular in location. This measures approximately 9.5 x 6 cm in maximum transaxial diameter. Small foci of active extravasation are seen within the hematoma on axial images #443, #464, and #482. These measure up to 1.7 cm. This is remote from the femoral artery. IMPRESSION: 1. The lungs are clear. No pneumothorax is seen. 2. Cardiomegaly. 3. There are mild and age indeterminant superior end plate compression deformities of T4 and T6. Correlate for point tenderness at these levels. The remainder the bony thorax appears intact. 4. There is no evidence of solid organ injury in the abdomen or pelvis. 5. The lumbosacral spine and bony pelvis are intact. 6. There is a comminuted fracture of the left proximal femur which involves the femoral neck, the intertrochanteric region, and the subtrochanteric region. The subtrochanteric fragments are distracted. 7. There is a large hematoma identified in the left thigh around the left femoral fracture. This is at least partially intramuscular, and there are several small foci of active extravasation identified which measure up to 1.7 cm. 8. Mild colonic diverticulosis without CT evidence of acute diverticulitis. 9. Prostatomegaly. 10. 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 11. There is mild stenosis at the origin of the celiac artery with poststenotic dilatation. 12. Additional findings as above. Electronically signed by: Gómez Santana M.D. 01/29/2017 2:16 PM Dictated Date/Time: 01/29/2017 1:57 PM The status of this report is Signed. Draft = Not yet reviewed or approved by Radiologist. Signed = Reviewed and approved by Radiologist. <AttendingPhy></AttendingPhy> <FamilyPhy>Eusebio Rivera M.D.</FamilyPhy> < PrimaryPhy>Eusebio Rivera M.D.</PrimaryPhy> <UnitNumber>[id number]</ UnitNumber> <VisitNumber>[id number]</VisitNumber> <PatientName>JANANUJGLEN</ PatientName> <DateOfBirth>1935</DateOfBirth> <Location>[facility]</Location> < ServiceDate>01/29/17</ServiceDate> <MNE>ESINDI</MNE> <OrderingPhy>Latricia Carreon DO</OrderingPhy> <OrderingPhyMNE>f rep ord dr blanton</OrderingPhyMNE> < DictatingPhyMNE>f rep dict dr blanton</DictatingPhyMNE> <CCListMNE>f rep ct mne</ CCListMNE> <AdmittingPhyMNE>f pt admit dr blanton</AdmittingPhyMNE> <AttendingPhyMNE >f pt attend dr blanton</AttendingPhyMNE> <ConsultingPhyMNE>f pt consult dr blanton</ConsultingPhyMNE> <FamilyPhyMNE>f pt fam dr blanton</FamilyPhyMNE> <OtherPhyMNE>f pt other dr blanton</OtherPhyMNE> < PrimaryPhyMNE>f pt prim care dr blanton</PrimaryPhyMNE> <ReferringPhyMNE>f pt referring dr blanton</ReferringPhyMNE> EKG EKG shows sinus bradycardia at 53 bpm, left axis deviation, no change compared to 07/01/2013. Impression Assessment and Plan Left proximal femur fracture with associated hematoma in left thigh with active extravasation--emergency department has already contacted Dr. Lara from orthopedics, who has agreed to see the patient. He does not feel that the patient needs compression at this time. We will hold aspirin 162.5 mg by mouth daily, and make patient nothing by mouth except medications. Placed on normal saline at 100 mils per hour. Will ask nursing to measure circumference of left femur area every few hours to monitor for potential worsening of hematoma. Anemia--hemoglobin was 12.6 on admission. Follow H&H every 6 hours. Hypertension/renal insufficiency--continue carvedilol 9.375 mg by mouth twice a day. Hold aspirin as noted above and lisinopril 20 mg by mouth twice a day. We 'll have available hydralazine 10 mg IV every 6 hours when necessary systolic blood pressure 150. Hyperlipidemia--continue atorvastatin 20 mg by mouth daily. 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 BPH--monitor for symptoms while on IV fluids. Level of Care Telemetry Advanced Directives Existing Advance Directive: No Existing Living Will: No Existing Power of Potato Grader: No Resuscitation Status FULL RESUSCITATION VTE Prophylaxis VTE Risk Assessment Done? Y/N: Yes Risk Level: Moderate Given or contraindicated: SCD's
[2017-01-29 18:30] VITALS: BP 191/83; PULSE 66; TEMP 36.8; O2SAT 97
[2017-01-29] MEDS: MoRPHine SULFATE 4 MG/ML 1 ML CARP\\VIAL IV PRN (18:36)
[2017-01-29 19:00] VITALS: BP 165/89; PULSE 65; TEMP 37; O2SAT 95
[2017-01-29 19:05] VITALS: BP 165/89
[2017-01-29 19:25] LABS: HEMATOCRIT 33.3 % (42-52)
[2017-01-29 19:56] LABS: CKMB/CK RATIO 2.2 (0-3.0)
[2017-01-29] MEDS: CARVEDILOL 6.25 MG TAB PO SCH (20:46)
[2017-01-29] MEDS: SODIUM CHLORIDE 0.9% 1000ML 1,000 ML IV SCH (20:47)
[2017-01-29 23:24] VITALS: BP 162/76; PULSE 72; TEMP 36.9; O2SAT 97
[2017-01-29 23:33] LABS: HEMATOCRIT 32.9 % (42-52)
[2017-01-30 01:54] LABS: CKMB/CK RATIO 2.3 (0-3.0)
[2017-01-30] MEDS: MoRPHine SULFATE 4 MG/ML 1 ML CARP\\VIAL IV PRN ×2 (02:04→18:07)
[2017-01-30 04:16] VITALS: BP 147/61; PULSE 75; TEMP 36.8; O2SAT 98
[2017-01-30] MEDS: SODIUM CHLORIDE 0.9% 1000ML 1,000 ML IV SCH ×2 (05:43→16:56)
[2017-01-30 05:44] LABS: BASO % 0.3 %; BASO ABS # 0.02 K/uL (0-0.2); COMPLETE YES; EOS % 0.6 %; HEMATOCRIT 30.5 % (42-52); IG% 0.3 %; LYMPH % 16.9 %; LYMPH ABS # 1.35 K/uL (1.2-3.4); MEAN CELL VOLUME 88.7 fL (80-100); MEAN CORPUSCULAR HEMOGLOBIN 29.4 pg (25-34); MEAN CORPUSCULAR HGB CONC 33.1 g/dl (32-36); MEAN PLATELET VOLUME 9.8 fL (7.4-10.4); MONO % 15.4 %; NEUT % 66.5 %; PLATELET COUNT 133 K/uL (130-400); RED BLOOD COUNT 3.44 M/uL (4.7-6.1)
[2017-01-30] MEDS: MoRPHine SULFATE 2 MG/ML CARP IV PRN ×4 (05:44→19:50)
[2017-01-30 05:54] LABS: INR 1.1 (0.9-1.1); PROTHROMBIN TIME (PATIENT) 11.3 SECONDS (9.0-12.0)
[2017-01-30 06:18] LABS: BUN/CREATININE RATIO 23.7 (10-20); CALCIUM 8.3 mg/dl (8.5-10.1); CREATININE 1.3 mg/dl (0.60-1.40); POTASSIUM 4.4 mmol/L (3.5-5.1)
[2017-01-30 07:56] VITALS: BP 166/76; PULSE 79; TEMP 36.5; O2SAT 96
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
--- NOTE | 2017-01-30 08:30 | Hospitalist Progress Note ---
Hospitalist Progress Note Date of Service Jan 30, 2017. (Yancy Zepeda PA-C) Subjective Pt evaluation today including: conversation w/ patient, physical exam, chart review, lab review, review of studies Pain: None PO Intake: NPO Voiding: bettencourt catheter in place The patient was seen and examined this morning. Pt reports feeling pretty well, he has 3/10 pain in the left hip but is localized to that area. He is questioning why he's not getting his blood pressure medications. Pt reports yesterday falling from the 3rd step of a step ladder while cleaning gutters on his deck. He does not remember the fall, and notes a left temporal head bump but states its not sore, and he denies headache. He cannot remember anything inbetween the fall and being seen by EMT crew at his home. Per report his and daughter where present and they witnessed the fall. He denies any chest pain, shortness of breath, abdominal pain, lightheadedness or dizziness. Additional Comments: ROS: 6 point ROS reviewed and otherwise negative per HPI. (Yancy Zepeda PA-C) Objective Vital Signs Date Time Temp Pulse Resp B/P (MAP) Pulse Ox O2 Delivery O2 Flow Rate FiO2 01/30/17 07:56 36.5 79 18 166/76 (106) 96 01/30/17 04:16 36.8 75 18 147/61 (89) 98 Room Air 01/30/17 04:00 Room Air 01/29/17 23:59 Room Air 01/29/17 23:24 36.9 72 19 162/76 (104) 97 Room Air 01/29/17 20:00 Room Air 01/29/17 19:05 165/89 (114) 01/29/17 19:00 37.0 65 12 165/89 (114) 95 Room Air 01/29/17 18:30 36.8 66 18 191/83 (119) 97 Room Air 01/29/17 18:13 71 18 178/77 98 01/29/17 17:54 36.9 71 18 174/95 98 Room Air 01/29/17 17:00 71 18 174/95 94 Room Air 01/29/17 16:35 70 01/29/17 16:00 67 16 178/81 95 Room Air 01/29/17 15:00 67 16 167/73 99 Room Air 01/29/17 14:11 65 18 207/87 95 Room Air 01/29/17 13:23 57 17 190/82 98 Room Air 01/29/17 12:29 56 01/29/17 12:27 36.9 61 20 199/110 99 Room Air (Yancy Zepeda PA-C) Physical Exam General Appearance: WD/WN, no apparent distress, + pertinent finding (+ contusion over left temporal region of scalp,) Eyes: PERRL, EOMI ENT: hearing grossly normal, pharynx normal Neck: supple, no JVD Respiratory/Chest: lungs clear, no respiratory distress, no accessory muscle use Cardiovascular: regular rate, rhythm, no edema, no JVD, no murmur Abdomen: normal bowel sounds, non tender, soft, no organomegaly Extremities: non-tender, no pedal edema (of the RLE.), + pertinent finding ( Left leg shortneded and externally fixated. Good active ROM with left foot, ankle and toes. + peripheral edema LLE d/t fracture, + sensation to light touch intact distally) Neurologic/Psychiatric: alert, oriented x 3 Skin: normal color, warm/dry (Yancy Zepeda, MARCY-C) Laboratory Results Last 24 Hours Test 01/29/17 12:45 01/29/17 19:13 01/29/17 23:25 01/30/17 01:10 White Blood Count 6.64 K/uL Red Blood Count 4.40 M/uL Hemoglobin 12.6 g/dL 11.4 g/dL 10.9 g/dL Hematocrit 38.2 % 33.3 % 32.9 % Mean Corpuscular Volume 86.8 fL Mean Corpuscular Hemoglobin 28.6 pg Mean Corpuscular Hemoglobin Concent 33.0 g/dl Platelet Count 173 K/uL Mean Platelet Volume 9.4 fL Neutrophils (%) (Auto) 65.5 % Lymphocytes (%) (Auto) 18.5 % Monocytes (%) (Auto) 12.5 % Eosinophils (%) (Auto) 2.7 % Basophils (%) (Auto) 0.5 % Neutrophils # (Auto) 4.35 K/uL Lymphocytes # (Auto) 1.23 K/uL Monocytes # (Auto) 0.83 K/uL Eosinophils # (Auto) 0.18 K/uL Basophils # (Auto) 0.03 K/uL RDW Standard Deviation 39.8 fL RDW Coefficient of Variation 12.4 % Immature Granulocyte % (Auto) 0.3 % Immature Granulocyte # (Auto) 0.02 K/uL Prothrombin Time 10.9 SECONDS Prothromb Time International Ratio 1.0 Activated Partial Thromboplast Time 21.7 SECONDS Partial Thromboplastin Ratio 0.8 Sodium Level 139 mmol/L Potassium Level 4.3 mmol/L Chloride Level 107 mmol/L Carbon Dioxide Level 26 mmol/L Anion Gap 6.0 mmol/L Blood Urea Nitrogen 32 mg/dl Creatinine 1.50 mg/dl Est Creatinine Clear Calc Drug Dose 31.3 ml/min Estimated GFR () 49.2 Estimated GFR (Non- 42.4 BUN/Creatinine Ratio 21.5 Random Glucose 114 mg/dl Calcium Level 8.9 mg/dl Total Bilirubin 0.9 mg/dl Aspartate Amino Transf (AST/SGOT) 19 U/L Alanine Aminotransferase (ALT/SGPT) 21 U/L Alkaline Phosphatase 91 U/L Troponin I < 0.015 ng/ml < 0.015 ng/ml < 0.015 ng/ml Total Protein 7.2 gm/dl Albumin 3.7 gm/dl Globulin 3.5 gm/dl Albumin/Globulin Ratio 1.1 Total Creatine Kinase 88 U/L 93 U/L Creatine Kinase MB 1.9 ng/ml 2.1 ng/ml Creatine Kinase MB Ratio 2.2 2.3 Test 01/30/17 05:31 White Blood Count 8.00 K/uL Red Blood Count 3.44 M/uL Hemoglobin 10.1 g/dL Hematocrit 30.5 % Mean Corpuscular Volume 88.7 fL Mean Corpuscular Hemoglobin 29.4 pg Mean Corpuscular Hemoglobin Concent 33.1 g/dl Platelet Count 133 K/uL Mean Platelet Volume 9.8 fL Neutrophils (%) (Auto) 66.5 % Lymphocytes (%) (Auto) 16.9 % Monocytes (%) (Auto) 15.4 % Eosinophils (%) (Auto) 0.6 % Basophils (%) (Auto) 0.3 % Neutrophils # (Auto) 5.33 K/uL Lymphocytes # (Auto) 1.35 K/uL Monocytes # (Auto) 1.23 K/uL Eosinophils # (Auto) 0.05 K/uL Basophils # (Auto) 0.02 K/uL RDW Standard Deviation 41.8 fL RDW Coefficient of Variation 12.9 % Immature Granulocyte % (Auto) 0.3 % Immature Granulocyte # (Auto) 0.02 K/uL Prothrombin Time 11.3 SECONDS Prothromb Time International Ratio 1.1 Activated Partial Thromboplast Time 25.0 SECONDS Partial Thromboplastin Ratio 1.0 Sodium Level 140 mmol/L Potassium Level 4.4 mmol/L Chloride Level 108 mmol/L Carbon Dioxide Level 26 mmol/L Anion Gap 6.0 mmol/L Blood Urea Nitrogen 31 mg/dl Creatinine 1.30 mg/dl Est Creatinine Clear Calc Drug Dose 36.1 ml/min Estimated GFR () 58.5 Estimated GFR (Non- 50.5 BUN/Creatinine Ratio 23.7 Random Glucose 110 mg/dl Calcium Level 8.3 mg/dl Magnesium Level 2.0 mg/dl (Yancy Zepeda, PAJuliann) Assessment and Plan 81 yo M with PMHx of HTN, anemia, HLD, high grade stenosis of the SMA, who sustained a left hip fracture s/p fall off 3rd step of a step ladder last evening. Planned OR today with Dr. Lara Left proximal femur fracture with associated hematoma in left thigh with active extravasation- - Dr. Lara and Gavin Smith on board with ortho- plan to take him to the OR today. - Hold aspirin 162.5 mg by mouth daily, and make patient nothing by mouth except medications. - Cont maintenance fluids with 100mL/hr - Continue to have nursing measure circumference of left femur area every few hours to monitor for potential worsening of hematoma. - Check Vit D level - PT/OT after surgery Anemia - hemoglobin was 12.6 on admission, down to 10.1 now from acute blood loss secondary to fracture - Follow H&H every 6 hours. Hypertension/renal insufficiency - Hold carvedilol 9.375 mg by mouth twice a day this morning, can reinstitute this tonight if BP stable. - Hold aspirin as noted above and lisinopril 20 mg by mouth twice a day. We'll have available hydralazine 10 mg IV every 6 hours when necessary systolic blood pressure 150. Hyperlipidemia- -continue atorvastatin 20 mg by mouth daily. High-grade stenosis of the SMA -no symptoms at this time. BPH- -monitor for symptoms while on IV fluids. DVT ppx: Teds and SCD on nonaffected leg, no chemical anticoagulation in light of surgical procedure Disposition: OR today, possible d/c in ~2 days, will need CM to assist with rehab/discharge planning. (Yancy Zepeda PA-C) Reviewed: Pt Seen/Exam by Me (Elyse Sloan MD) History Physician Supply Chain Program Manager Supervision Note: I interviewed and examined the patient. Discussed with MARCY Zepeda and agree with findings and plan as documented in the note. Any exceptions or clarifications are listed here: Pt seen a few hours post-op. Doing well, having some pain in left hip. No CP or SOB VSS, tele reviewed NAD RRR no mgr CTAB no wcr Abd +BS soft NT ND Ext: left hip with dressing in place c/d/i with some surrounding edema Skin no rashes 81 yo male with HTN, here with fall and left hip fracture, sustained head injury with LOC x several minutes. Hematoma surrounding fracture and acute blood loss anemia. -transfuse as needed to keep Hgb >7-8 -restart BP meds when able to -appreciate Ortho management Documented By: Elyse Sloan (Elyse Sloan MD)
[2017-01-30] MEDS: ATORVASTATIN 20 MG TAB PO SCH (08:46)
[2017-01-30] MEDS: CARVEDILOL 6.25 MG TAB PO SCH ×2 (08:46→22:02)
--- NOTE | 2017-01-30 10:44 | Clinical Documentation Query ---
CLINICAL DOCUMENTATION QUERY Ms. GARRETT, In your clinical opinion is this patient being managed for: ( x ) Chronic kidney disease, stage 3 ( ) Other explanation of clinical findings (Please Explain) ( ) Unable to determine (Please Define) ( ) Need to Discuss ( ) Not Agree The medical record reflects the following clinical findings, treatment, and risk factors. Clinical Indicators: 81 yo male presenting after a fall with a L femur fracture. H/P indicates pt with renal insufficiency. Review of very limited GFR range is 42-50. Treatment: monitor PRP's, treat comorbid condition Risk Factors: HTN, Age Documenting the stage of CKD will improve data integrity and will help clarify vague terms such as "renal insufficiency" or "chronic renal failure." Please clarify and document your clinical opinion in the progress notes and discharge summary. Terms such as "probable", "suspected", "likely", "questionable", "possible", or "still to be ruled out" are acceptable. IF IN AGREEMENT, YOU MUST DOCUMENT ABOVE DIAGNOSTIC STATEMENT IN DAILY PROGRESS NOTES AND DISCHARGE SUMMARY. This document is not part of the patient's record. Thank You, Emma Tijerina, RN [phone]
[2017-01-30 10:47] LABS: HEMATOCRIT 29.7 % (42-52)
[2017-01-30 11:17] LABS: CKMB/CK RATIO 2.2 (0-3.0)
[2017-01-30] MEDS ORDERED: FENTANYL CITRATE INJ 50 MCG/1 ML 2 ML VIAL IV PRN (12:30)
[2017-01-30] MEDS ORDERED: LABETALOL HCL IV 5 MG/ML 20ML IV PRN (12:30)
[2017-01-30] MEDS ORDERED: HYDROmorphone INJ 1 MG/ML SYR IV PRN (12:30)
[2017-01-30] MEDS ORDERED: MEPERIDINE HCL 25 MG/ML CARP IV PRN (12:30)
[2017-01-30] MEDS ORDERED: ONDANSETRON INJ 2 MG/ML 2 ML VIAL IV PRN (12:30)
[2017-01-30] MEDS ORDERED: ATROPINE SULFATE 0.1 MG/ML 5ML SYR IV PRN (12:30)
[2017-01-30] MEDS ORDERED: EpHEDrine SULFATE INJ 50 MG/ML AMP IV PRN (12:30)
[2017-01-30] MEDS ORDERED: FENTANYL CITRATE INJ 50 MCG/1 ML 2 ML VIAL ONE (12:45)
[2017-01-30] MEDS ORDERED: MIDAZOLAM HCL 1 MG/ML 2ML VIAL ONE (12:45)
[2017-01-30] MEDS ORDERED: PROPOFOL IV EMULSION 10 MG/ML 20 ML VIAL IV ONE (12:45)
[2017-01-30] MEDS ORDERED: NURSING VERBAL MED ORDER ONE (13:00)
[2017-01-30] MEDS ORDERED: CEFAZOLIN SOD 1000MG/55 ML D5W IV ONE (13:06)
--- NOTE | 2017-01-30 13:08 | History & Physical Bridge Note ---
H&P Re-Evaluation Bridge Note: I have examined the patient, reviewed the History & Physical and in the interval since the performance of the History & Physical I have noted the following changes of clinical significance: No changes noted
[2017-01-30] MEDS ORDERED: KETAMINE HCL INJ 50 MG/ML 10 ML VIAL ONE (13:16)
--- NOTE | 2017-01-30 15:20 | DIAGNOSTIC IMAGING REPORT ---
LEFT FEMUR 2 VIEWS ROUTINE CLINICAL HISTORY: LEFT TROCH NAIL hip nailing COMPARISON: None. DISCUSSION: Image intensifier dilatation for left hip nailing procedure. There is no evidence for soft tissue swelling. IMPRESSION: Image intensifier usage for left hip nailing procedure Electronically signed by: Ugo Ponce M.D. 01/30/2017 3:19 PM Dictated Date/Time: 01/30/2017 3:18 PM
[2017-01-30] MEDS ORDERED: SOD PHOSPHATE/SOD BIPHOSPHATE ENEMA 132 ML BTL PR PRN (15:30)
[2017-01-30] MEDS ORDERED: ZOLPIDEM TARTRATE 5 MG TAB PO PRN (15:30)
[2017-01-30] MEDS ORDERED: BISACODYL 10 MG SUPP PR PRN (15:30)
--- NOTE | 2017-01-30 15:31 | [facility] Operative Report ---
Operative Report Operative Date Jan 30, 2017. Pre-Operative Diagnosis Left Subtrochanteric and intertrochanteric Hip Fracture Post-Operative Diagnosis same Procedure(s) Performed ORIF with long trochanteric femoral nail Surgeon Dr. Akers Bobbin Drier Surgeon(s) MARYC eBll Estimated Blood Loss 50mL Findings Spiral fracture intertrochanteric region extending into the subtrochanteric region. Displacement and some angulation. Specimens none per surgeon Drains none Anesthesia spinal IV sedation Complication(s) None Disposition Recovery Room / PACU Indications Acute hip fracture Description of Procedure Patient was taken to the operating room and anesthetized under spinal anesthesia. The patient was positioned on a fracture table and brought down onto the perineal post the foot of the operative extremity was placed into boot traction and the well leg was placed into a well padded leg holding device in flexion and maximal internal rotation. The upper arms were crossed over the chest and padded and taped into position. The fracture was reduced by first keeping the hip in the abducted position and then placing longitudinal traction followed by internal rotation followed by adduction. Fluoroscopic views documented the reduction to be satisfactory. The left hip down to below the knee was prepped and draped with ChloraPrep in the usual sterile fashion. Sterile drapes were applied from the hip to below the knee. A longitudinal incision was made at the tip of the greater trochanter extending proximally along the abductor tendon area. The subcutaneous tissues were incised down to the fascia and subcutaneous bleeders were cauterized. The fascia was divided longitudinally and a Hernández elevator was used to split the medius and the greater trochanter was palpated. The entrance point was identified with fluoroscopy. The guidewire was advanced under fluoroscopic guidance. The drill for the proximal opening was utilized. The beaded guidewire was passed through that drill hole down into the shaft of the femur to the level of the proximal patella. The length of the john was measured and a 360 millimeter length john by 11 mm mm width john was chosen. We used the Synthes long trochanteric femoral nail with spiral blade fixation including distal locking screws. We dropped a 12 mm reamer down to the canal to make sure that the john would pass without difficulty. The Synthes 130 angle 11 mm x 360 mm length titanium john was advanced over the guidewire to fluoroscopic guidance until seated at the appropriate depth. The guidewire was advanced to the femoral neck and head under fluoroscopic guidance in the appropriate position and length of the blade measured at 100 millimeter. After appropriate drilling for the spiral blade to spiral blade was then advanced until fully seated and the proximal locking screw was tightened. Traction was then let off and then the hip was abducted slightly so we could bring in the fluoroscopy and get perfect circles for placement of the distal locking screws. The locking screws were placed utilizing a radiolucent guide drill. We used 5 mm x 40 and 42 mm locking screws. AP and lateral views were identified to sure the screws were in appropriate position and assessed the reduction proximally. After copious irrigation the fascia was closed with interrupted [id number] #1 Vicryl sutures the subcutaneous tissues were closed with 2-0 Vicryl sutures and the skin was closed with jess sterile dressings were applied and the patient tolerated procedure well. By physician assistant front office manager Ugo VIDAL assisted me and the procedure consisted in setting up the fracture table adjusting the patient prepping and draping soft tissue retraction instrument management performs the wound closure and will participate in the postoperative patient. Thank you. I attest to the content of the Intraoperative Record and any orders documented therein. Any exceptions are noted below.
--- NOTE | 2017-01-30 15:44 | Anesthesiology Progress Note ---
Anesthesia Post Op Note Date & Time Jan 30, 2017 at 15:44 Vital Signs Pain Intensity: 0 Vital Signs Past 12 Hours Date Time Temp Pulse Resp B/P (MAP) Pulse Ox O2 Delivery O2 Flow Rate FiO2 01/30/17 15:40 67 18 01/30/17 15:40 67 18 100 01/30/17 15:36 152/66 01/30/17 15:36 152/66 01/30/17 15:35 75 24 01/30/17 15:35 76 24 100 01/30/17 15:35 75 24 01/30/17 15:35 76 24 100 01/30/17 15:31 140/76 01/30/17 15:31 140/76 01/30/17 15:30 75 20 100 01/30/17 15:30 75 20 100 01/30/17 15:30 73 20 01/30/17 15:30 73 20 01/30/17 15:26 139/67 01/30/17 15:26 139/67 01/30/17 15:25 67 22 100 01/30/17 15:25 67 22 100 01/30/17 15:25 68 22 01/30/17 15:25 68 22 01/30/17 15:20 69 12 130/76 100 01/30/17 15:20 69 12 130/76 100 01/30/17 15:20 67 12 01/30/17 15:20 67 12 01/30/17 15:20 36.6 15 12 130/76 (103) 100 Nasal Cannula 2 01/30/17 08:00 Room Air 01/30/17 07:56 36.5 79 18 166/76 (106) 96 01/30/17 04:16 36.8 75 18 147/61 (89) 98 Room Air 01/30/17 04:00 Room Air Notes Mental Status: alert / awake / arousable, participated in evaluation Pt Amnestic to Procedure: Yes Nausea / Vomiting: adequately controlled Pain: adequately controlled Airway Patency, RR, SpO2: stable & adequate BP & HR: stable & adequate Hydration State: stable & adequate Neuraxial Anesthesia: was administered, sensory block is resolving Anesthetic Complications: no major complications apparent
[2017-01-30 16:15] VITALS: BP 174/71; PULSE 70; TEMP 36.6; O2SAT 100
[2017-01-30] MEDS: HydrALAZINE HCL 20 MG/ML VIAL IV. PRN (16:53)
[2017-01-30 19:13] LABS: HEMATOCRIT 26.1 % (42-52)
[2017-01-30 19:40] VITALS: BP 144/64; PULSE 92; TEMP 36.6; O2SAT 98
[2017-01-30] MEDS: CEFAZOLIN IV 1,000 MG in DEXTROSE 5% 50ML 50 ML IV SCH (22:01)
[2017-01-30] MEDS: OXYCODONE HCL IR 5 MG TAB (IMMEDIATE RELEASE) PO PRN (22:02)
[2017-01-30] MEDS: ACETAMINOPHEN 500 MG TAB PO SCH (22:03)
[2017-01-30] MEDS: DOCUSATE SODIUM 100 MG CAP PO SCH (22:03)
[2017-01-30 23:29] LABS: HEMATOCRIT 25.3 % (42-52)
[2017-01-30 23:50] VITALS: BP 150/71; PULSE 96; TEMP 36.8; O2SAT 97
[2017-01-31] VITALS (12 sets, daily range): BP systolic 104–174; BP diastolic 50–69; PULSE 71–87; TEMP 36.5–37.2; O2SAT 93–97
[2017-01-31] MEDS: SODIUM CHLORIDE 0.9% 1000ML 1,000 ML IV SCH (05:51)
[2017-01-31] MEDS: ACETAMINOPHEN 500 MG TAB PO SCH ×3 (05:52→21:49)
[2017-01-31] MEDS: CEFAZOLIN IV 1,000 MG in DEXTROSE 5% 50ML 50 ML IV SCH (05:52)
[2017-01-31 06:24] LABS: BASO % 0.1 %; BASO ABS # 0.01 K/uL (0-0.2); EOS % 0.3 %; HEMATOCRIT 21.9 % (42-52); IG% 0.4 %; LYMPH % 11.2 %; LYMPH ABS # 1.25 K/uL (1.2-3.4); MEAN CELL VOLUME 88.3 fL (80-100); MEAN CORPUSCULAR HEMOGLOBIN 29.4 pg (25-34); MEAN CORPUSCULAR HGB CONC 33.3 g/dl (32-36); MEAN PLATELET VOLUME 9.7 fL (7.4-10.4); MONO % 14.9 %; NEUT % 73.1 %; PLATELET COUNT 114 K/uL (130-400); RED BLOOD COUNT 2.48 M/uL (4.7-6.1); WHITE BLOOD COUNT 11.15 K/uL (4.8-10.8)
[2017-01-31 06:34] LABS: INR 1.1 (0.9-1.1); PROTHROMBIN TIME (PATIENT) 11.8 SECONDS (9.0-12.0)
[2017-01-31 06:55] LABS: BUN/CREATININE RATIO 22.3 (10-20); CALCIUM 7.9 mg/dl (8.5-10.1); CREATININE 1.8 mg/dl (0.60-1.40); MAGNESIUM 2.2 mg/dl (1.8-2.4); POTASSIUM 4.8 mmol/L (3.5-5.1)
[2017-01-31 06:57] LABS: COMPLETE YES; ECHINOCYTES 1+
--- NOTE | 2017-01-31 07:46 | Hospitalist Progress Note ---
Hospitalist Progress Note Date of Service Jan 31, 2017. (Yancy Zepeda PA-C) Subjective Pt evaluation today including: conversation w/ patient, physical exam, chart review, lab review, review of studies Pain: Minimal PO Intake: Good Voiding: bettencourt catheter in place The patient was seen and examined this morning. Pt reports doing well today, he is sore and rates his pain 3/10. He is tolerating a diet, passing some gas, but has not had a bowel movement yet. He denies getting up and working with PT/ OT yet. Denies lightheadedness, dizziness, cp, sob, abd pain, n/v/d today. Additional Comments: ROS: 6 point ROS reviewed and otherwise negative. (Yancy Zepeda PA-C) Objective Vital Signs Date Time Temp Pulse Resp B/P (MAP) Pulse Ox O2 Delivery O2 Flow Rate FiO2 01/31/17 04:16 37.0 79 16 115/51 (72) 96 Room Air 01/31/17 04:00 Room Air 01/30/17 23:59 Room Air 01/30/17 23:50 36.8 96 18 150/71 (97) 97 Room Air 01/30/17 20:00 Room Air 01/30/17 19:40 36.6 92 15 144/64 (90) 98 Room Air 01/30/17 16:15 Room Air 01/30/17 16:15 36.6 70 18 174/71 (105) 100 Nasal Cannula 01/30/17 15:43 36.8 78 18 142/75 (92) 99 Nasal Cannula 2 01/30/17 15:40 67 18 01/30/17 15:40 67 18 100 01/30/17 15:36 152/66 01/30/17 15:36 152/66 01/30/17 15:35 75 24 01/30/17 15:35 76 24 100 01/30/17 15:35 75 24 01/30/17 15:35 76 24 100 01/30/17 15:31 140/76 01/30/17 15:31 140/76 01/30/17 15:30 75 20 100 01/30/17 15:30 75 20 100 01/30/17 15:30 73 20 01/30/17 15:30 73 20 01/30/17 15:26 139/67 01/30/17 15:26 139/67 01/30/17 15:25 67 22 100 01/30/17 15:25 67 22 100 01/30/17 15:25 68 22 01/30/17 15:25 68 22 01/30/17 15:20 69 12 130/76 100 01/30/17 15:20 69 12 130/76 100 01/30/17 15:20 67 12 01/30/17 15:20 67 12 01/30/17 15:20 36.6 15 12 130/76 (103) 100 Nasal Cannula 2 01/30/17 08:00 Room Air 01/30/17 07:56 36.5 79 18 166/76 (106) 96 (Yancy Zepeda PA-C) Physical Exam General Appearance: WD/WN, no apparent distress Eyes: PERRL, EOMI ENT: hearing grossly normal, pharynx normal Neck: supple, no JVD Respiratory/Chest: chest non-tender, lungs clear, no respiratory distress, no accessory muscle use Cardiovascular: regular rate, rhythm, no JVD, no murmur Abdomen: no organomegaly, + pertinent finding (+hypoactive bowel sounds, slightly distended but nontender with palpation. ) Extremities: non-tender, + pertinent finding (+ L hip dressing c/d/i, + peripheral edema on the left. Sensation to light touch in tact) Neurologic/Psychiatric: alert, normal mood/affect, oriented x 3 Skin: normal color, warm/dry (Yancy Zepeda PA-C) Laboratory Results Last 24 Hours Test 01/30/17 10:30 01/30/17 18:28 01/30/17 23:19 01/31/17 05:58 Hemoglobin 9.9 g/dL 8.8 g/dL 8.5 g/dL 7.3 g/dL Hematocrit 29.7 % 26.1 % 25.3 % 21.9 % Total Creatine Kinase 105 U/L Creatine Kinase MB 2.3 ng/ml Creatine Kinase MB Ratio 2.2 Troponin I < 0.015 ng/ml 25-Hydroxy Vitamin D Total 24.9 ng/ml White Blood Count 11.15 K/uL Red Blood Count 2.48 M/uL Mean Corpuscular Volume 88.3 fL Mean Corpuscular Hemoglobin 29.4 pg Mean Corpuscular Hemoglobin Concent 33.3 g/dl Platelet Count 114 K/uL Mean Platelet Volume 9.7 fL Neutrophils (%) (Auto) 73.1 % Lymphocytes (%) (Auto) 11.2 % Monocytes (%) (Auto) 14.9 % Eosinophils (%) (Auto) 0.3 % Basophils (%) (Auto) 0.1 % Neutrophils # (Auto) 8.16 K/uL Lymphocytes # (Auto) 1.25 K/uL Monocytes # (Auto) 1.66 K/uL Eosinophils # (Auto) 0.03 K/uL Basophils # (Auto) 0.01 K/uL RDW Standard Deviation 42.4 fL RDW Coefficient of Variation 13.1 % Immature Granulocyte % (Auto) 0.4 % Immature Granulocyte # (Auto) 0.04 K/uL Echinocytes 1+ Prothrombin Time 11.8 SECONDS Prothromb Time International Ratio 1.1 Activated Partial Thromboplast Time 26.8 SECONDS Partial Thromboplastin Ratio 1.0 Sodium Level 140 mmol/L Potassium Level 4.8 mmol/L Chloride Level 107 mmol/L Carbon Dioxide Level 25 mmol/L Anion Gap 8.0 mmol/L Blood Urea Nitrogen 40 mg/dl Creatinine 1.80 mg/dl Est Creatinine Clear Calc Drug Dose 26.1 ml/min Estimated GFR () 39.5 Estimated GFR (Non- 34.0 BUN/Creatinine Ratio 22.3 Random Glucose 119 mg/dl Calcium Level 7.9 mg/dl Magnesium Level 2.2 mg/dl (Yancy Zepeda, PACourtneyC) Assessment and Plan 81 yo M with PMHx of HTN, anemia, HLD, high grade stenosis of the SMA, who sustained a left hip fracture s/p fall off 3rd step of a step ladder last evening. Planned OR today with Dr. Lara Left proximal femur fracture with associated hematoma in left thigh with active extravasation- - POD #1 ORIF of L subtrochanteric and internal hip fracture - Resume aspirin 162.5 mg by mouth daily along with lovenox 40 mg subq - pt getting 1 U PRBC today - Continue to have nursing measure circumference of left femur area every few hours to monitor for potential worsening of hematoma. - Vit D level= 24.9, start on supplement Vit D 2000 U daily - PT/OT after surgery Anemia - hemoglobin was 12.6 on admission, from acute blood loss secondary to fracture - dropped more to 7.3 - type and crossed, 1U PRBC ordered 01/31 - Follow H&H every 6 hours. Hypertension - Resume carvedilol 9.375 mg BID - Resume aspirin as noted above, Holding lisinopril 20 mg BID with Cr. bump - PRN hydralazine 10 mg IV every 6 hours prn for SBP> 150. CKD stage II-III - Cr. was 1.3 at time of admission and bumped to 1.8 in light of surgery and blood loss, NPO, baseline seems to be 1.3-1.4 - Will encourage oral hydration along w NSS - avoid nephrotoxins Hyperlipidemia- -continue atorvastatin 20 mg by mouth daily. High-grade stenosis of the SMA -no symptoms at this time. BPH- -monitor for symptoms while on IV fluids. DVT ppx: Teds and SCD on nonaffected leg, no chemical anticoagulation in light of surgical procedure Disposition: OR today, possible d/c in ~2 days, will need CM to assist with rehab/discharge planning. (Yancy Zepeda, GINGER) Reviewed: Pt Seen/Exam by Me (Elyse Sloan MD) History Physician Archival Studies Professor Supervision Note: I interviewed and examined the patient. Discussed with MARCY Zepeda and agree with findings and plan as documented in the note. Any exceptions or clarifications are listed here: Doing well. No events on tele. Pain in hip is fairly well controlled. Bettencourt still in place. Transfused 1 unit PRBCs this AM, vitals stable. No CP or SOB. Yasmine reg diet VSS, tele reviewed NAD RRR no mgr CTAB no wcr Abd +BS soft NT ND Ext: left hip with dressing in place c/d/i with some surrounding edema Skin no rashes 81 yo male with HTN, here with fall and left hip fracture, sustained head injury with LOC x several minutes. Hematoma surrounding fracture and acute blood loss anemia. With post-op MAR, manager of program 1.8 -transfuse as needed to keep Hgb >7-8, hemodynamically stable, do not suspect further blood loss at this time -check CBC in AM, not q6h as above -restarted COreg, still holding ACEI due to MAR -appreciate Ortho management -ok to stop IVFs as is taking adequate po liquids now and received blood, follow PRP in AM -stable for transfer to Ortho post-op Surgical floor Proph- Lovenox sq, is NOT on aspirin, consider restarting ASA in future but ok to hold for now given blood loss anemia Documented By: Elyse Sloan (Elyse Sloan MD)
[2017-01-31] MEDS: MULTIVITAMIN TAB PO SCH (08:07)
[2017-01-31] MEDS: CARVEDILOL 6.25 MG TAB PO SCH ×2 (08:08→20:45)
[2017-01-31] MEDS: DOCUSATE SODIUM 100 MG CAP PO SCH ×2 (08:08→20:45)
[2017-01-31] MEDS: ENOXAPARIN 40 MG/0.4 ML SYR SQ SCH (08:09)
--- NOTE | 2017-01-31 08:18 | Anesthesiology Progress Note ---
Anesthesia Post Op Note Date & Time Jan 31, 2017 at 08:18 Vital Signs Vital Signs Past 12 Hours Date Time Temp Pulse Resp B/P (MAP) Pulse Ox O2 Delivery O2 Flow Rate FiO2 01/31/17 04:16 37.0 79 16 115/51 (72) 96 Room Air 01/31/17 04:00 Room Air 01/30/17 23:59 Room Air 01/30/17 23:50 36.8 96 18 150/71 (97) 97 Room Air Notes Mental Status: alert / awake / arousable, participated in evaluation Pt Amnestic to Procedure: Yes Nausea / Vomiting: adequately controlled Pain: adequately controlled Airway Patency, RR, SpO2: stable & adequate BP & HR: stable & adequate Hydration State: stable & adequate Neuraxial Anesthesia: sensory block resolved Anesthetic Complications: no major complications apparent
--- NOTE | 2017-01-31 08:26 | Orthopedic Progress Note ---
Orthopedic Progress Note Date of Service Jan 31, 2017. Subjective Post OP Day: 1 Reports: feeling well, pain controlled w PO medications, Denies: complaints, chest pain, SOB, nausea / vomiting, light headedness, calf pain Additional Notes: Hgb 7.3 this AM Objective calves soft nontender, N/V intact, hip located, capillary refill less than 2 sec., dressing C/D/I, A&O x3, toes mobile Date Time Temp Pulse Resp B/P (MAP) Pulse Ox O2 Delivery O2 Flow Rate FiO2 01/31/17 04:16 37.0 79 16 115/51 (72) 96 Room Air 01/31/17 04:00 Room Air 01/30/17 23:59 Room Air 01/30/17 23:50 36.8 96 18 150/71 (97) 97 Room Air 01/30/17 20:00 Room Air 01/30/17 19:40 36.6 92 15 144/64 (90) 98 Room Air 01/30/17 16:15 Room Air 01/30/17 16:15 36.6 70 18 174/71 (105) 100 Nasal Cannula 01/30/17 15:43 36.8 78 18 142/75 (92) 99 Nasal Cannula 2 01/30/17 15:40 67 18 01/30/17 15:40 67 18 100 01/30/17 15:36 152/66 01/30/17 15:36 152/66 01/30/17 15:35 75 24 01/30/17 15:35 76 24 100 01/30/17 15:35 75 24 01/30/17 15:35 76 24 100 01/30/17 15:31 140/76 01/30/17 15:31 140/76 01/30/17 15:30 75 20 100 01/30/17 15:30 75 20 100 01/30/17 15:30 73 20 01/30/17 15:30 73 20 01/30/17 15:26 139/67 01/30/17 15:26 139/67 01/30/17 15:25 67 22 100 01/30/17 15:25 67 22 100 01/30/17 15:25 68 22 01/30/17 15:25 68 22 01/30/17 15:20 69 12 130/76 100 7/5/17 15:20 69 12 130/76 100 01/30/17 15:20 67 12 01/30/17 15:20 67 12 01/30/17 15:20 36.6 15 12 130/76 (103) 100 Nasal Cannula 2 Laboratory Results 24 Hours: Test 01/30/17 10:30 01/30/17 18:28 01/30/17 23:19 01/31/17 05:58 Hematocrit 29.7 % 26.1 % 25.3 % 21.9 % Hemoglobin 9.9 g/dL 8.8 g/dL 8.5 g/dL 7.3 g/dL White Blood Count 11.15 K/uL Red Blood Count 2.48 M/uL Mean Corpuscular Volume 88.3 fL Mean Corpuscular Hemoglobin 29.4 pg Mean Corpuscular Hemoglobin Concent 33.3 g/dl Platelet Count 114 K/uL Mean Platelet Volume 9.7 fL Neutrophils (%) (Auto) 73.1 % Lymphocytes (%) (Auto) 11.2 % Monocytes (%) (Auto) 14.9 % Eosinophils (%) (Auto) 0.3 % Basophils (%) (Auto) 0.1 % Neutrophils # (Auto) 8.16 K/uL Lymphocytes # (Auto) 1.25 K/uL Monocytes # (Auto) 1.66 K/uL Eosinophils # (Auto) 0.03 K/uL Basophils # (Auto) 0.01 K/uL Prothromb Time International Ratio 1.1 Prothrombin Time 11.8 SECONDS Assessment & Plan Assessment: POD #1, Left hip ORIF long troch nail Acute blood loss anemia Plan: PT/ OT- TTWB Left leg DVT proph- Lovenox D/C plans- SNF when medically stable. As per medicine- transfusion in process due to low H/H Inhouse Planning Pain Management: Morphine, PO Tylenol, Oxy IR DVT Prophylaxis: TEDs, SCDs, Lovenox Discharge Planning Discharge Planning: assisted facility Pain Management: PO Tylenol, Oxy IR DVT Prophylaxis: TEDs, Lovenox Therapy: Physical Therapy, Occupational Therapy
[2017-01-31 12:26] LABS: HEMATOCRIT 24.3 % (42-52)
[2017-01-31] MEDS: ATORVASTATIN 20 MG TAB PO SCH (13:57)
[2017-01-31] MEDS: CHOLECALCIFEROL 1000 INTER.UNIT TAB PO SCH (14:15)
[2017-01-31] MEDS: OXYCODONE HCL IR 5 MG TAB (IMMEDIATE RELEASE) PO PRN (14:45)
[2017-02-01] VITALS (14 sets, daily range): BP systolic 71–200; BP diastolic 38–76; PULSE 69–83; TEMP 36.8–36.9; O2SAT 95–96
[2017-02-01] MEDS: HydrALAZINE HCL 20 MG/ML VIAL IV. PRN ×2 (00:19→12:06)
[2017-02-01] MEDS: ACETAMINOPHEN 500 MG TAB PO SCH ×3 (05:52→21:35)
[2017-02-01 07:02] LABS: BASO % 0.2 %; BASO ABS # 0.02 K/uL (0-0.2); EOS % 1.7 %; HEMATOCRIT 23.5 % (42-52); IG% 0.5 %; LYMPH % 11.2 %; LYMPH ABS # 1.18 K/uL (1.2-3.4); MEAN CELL VOLUME 87.4 fL (80-100); MEAN CORPUSCULAR HEMOGLOBIN 30.5 pg (25-34); MEAN CORPUSCULAR HGB CONC 34.9 g/dl (32-36); MEAN PLATELET VOLUME 9.6 fL (7.4-10.4); NEUT % 71.4 %; PLATELET COUNT 126 K/uL (130-400); RED BLOOD COUNT 2.69 M/uL (4.7-6.1)
[2017-02-01 07:13] LABS: PARTIAL THROMBOPLASTIN RATIO 1.2; PROTHROMBIN TIME (PATIENT) 11.1 SECONDS (9.0-12.0)
[2017-02-01 07:38] LABS: COMPLETE YES
[2017-02-01 07:39] LABS: BUN/CREATININE RATIO 22.5 (10-20); CALCIUM 8.2 mg/dl (8.5-10.1); CREATININE 1.4 mg/dl (0.60-1.40); MAGNESIUM 2.2 mg/dl (1.8-2.4); POTASSIUM 3.7 mmol/L (3.5-5.1)
--- NOTE | 2017-02-01 07:49 | Hospitalist Progress Note ---
Hospitalist Progress Note Date of Service Feb 01, 2017. Objective Vital Signs Date Time Temp Pulse Resp B/P (MAP) Pulse Ox O2 Delivery O2 Flow Rate FiO2 02/01/17 05:55 128/73 (91) 02/01/17 00:15 Room Air 02/01/17 00:10 173/66 (101) 01/31/17 23:07 37.1 78 16 173/66 (101) 93 Room Air 01/31/17 21:51 146/69 (94) 01/31/17 20:50 81 174/66 (102) 01/31/17 16:50 36.8 78 18 149/66 (93) 94 Room Air 01/31/17 16:50 Room Air 01/31/17 15:52 36.9 77 16 94 01/31/17 15:48 Room Air 01/31/17 15:38 36.9 77 16 140/66 (90) 94 Room Air 01/31/17 11:46 Room Air 01/31/17 10:30 37.1 75 18 121/62 96 01/31/17 09:58 Room Air 01/31/17 09:30 37.0 71 16 117/55 96 01/31/17 09:00 37.0 71 16 110/50 96 01/31/17 08:53 37.1 74 15 104/50 93 01/31/17 08:41 37.2 78 11 125/55 97 01/31/17 08:28 36.5 87 18 121/54 (76) 96 Laboratory Results Last 24 Hours Test 01/31/17 12:01 02/01/17 06:12 Hemoglobin 8.4 g/dL 8.2 g/dL Hematocrit 24.3 % 23.5 % White Blood Count 10.50 K/uL Red Blood Count 2.69 M/uL Mean Corpuscular Volume 87.4 fL Mean Corpuscular Hemoglobin 30.5 pg Mean Corpuscular Hemoglobin Concent 34.9 g/dl Platelet Count 126 K/uL Mean Platelet Volume 9.6 fL Neutrophils (%) (Auto) 71.4 % Lymphocytes (%) (Auto) 11.2 % Monocytes (%) (Auto) 15.0 % Eosinophils (%) (Auto) 1.7 % Basophils (%) (Auto) 0.2 % Neutrophils # (Auto) 7.50 K/uL Lymphocytes # (Auto) 1.18 K/uL Monocytes # (Auto) 1.57 K/uL Eosinophils # (Auto) 0.18 K/uL Basophils # (Auto) 0.02 K/uL RDW Standard Deviation 41.9 fL RDW Coefficient of Variation 13.1 % Immature Granulocyte % (Auto) 0.5 % Immature Granulocyte # (Auto) 0.05 K/uL Prothrombin Time 11.1 SECONDS Prothromb Time International Ratio 1.0 Activated Partial Thromboplast Time 30.9 SECONDS Partial Thromboplastin Ratio 1.2 Sodium Level 138 mmol/L Potassium Level 3.7 mmol/L Chloride Level 106 mmol/L Carbon Dioxide Level 25 mmol/L Anion Gap 7.0 mmol/L Blood Urea Nitrogen 32 mg/dl Creatinine 1.40 mg/dl Est Creatinine Clear Calc Drug Dose 33.5 ml/min Estimated GFR () 53.5 Estimated GFR (Non- 46.1 BUN/Creatinine Ratio 22.5 Random Glucose 117 mg/dl Calcium Level 8.2 mg/dl Magnesium Level 2.2 mg/dl Assessment and Plan 81 yo M with PMHx of HTN, anemia, HLD, high grade stenosis of the SMA, who sustained a left hip fracture s/p fall off 3rd step of a step ladder last evening. Planned OR today with Dr. Lara Left proximal femur fracture with associated hematoma in left thigh with active extravasation- - POD #2 ORIF of L subtrochanteric and internal hip fracture - Resume aspirin 162.5 mg by mouth daily along with lovenox 40 mg subq - S/p transfusion 1 U PRBC /01/12 - Continue to have nursing measure circumference of left femur area every few hours to monitor for potential worsening of hematoma. - Vit D level= 24.9, start on supplement Vit D 2000 U daily - PT/OT after surgery - CM on board for discharge planning to rehab Anemia - hemoglobin was 12.6 on admission, from acute blood loss secondary to fracture - dropped more to 7.3 - type and crossed, 1U PRBC ordered 01/31 - Hgb improved to 8.2 Hypertension - Resume carvedilol 9.375 mg BID - Resume aspirin as noted above, Holding lisinopril 20 mg BID with Cr. bump - PRN hydralazine 10 mg IV every 6 hours prn for SBP> 150. CKD stage II-III - Cr. was 1.3 at time of admission and bumped to 1.8 in light of surgery and blood loss, now returned to baseline of 1.4, baseline seems to be 1.3-1.4 - Will encourage oral hydration along w NSS - avoid nephrotoxins Hyperlipidemia- -continue atorvastatin 20 mg by mouth daily. High-grade stenosis of the SMA -no symptoms at this time. BPH- -monitor for symptoms while on IV fluids. DVT ppx: asa and lovenox subq Disposition: D/c likely within 24 hours.
--- NOTE | 2017-02-01 08:02 | Orthopedic Progress Note ---
Orthopedic Progress Note Date of Service Feb 01, 2017. Subjective Post OP Day: 2 Reports: feeling well, Denies: chest pain, SOB, nausea / vomiting, light headedness, calf pain Additional Notes: Pt states he hasn't been up much but looking forward to getting OOB to chair etc. Pain controlled currently. Objective calves soft nontender, N/V intact, incision C/D/I, A&O x3, toes mobile Date Time Temp Pulse Resp B/P (MAP) Pulse Ox O2 Delivery O2 Flow Rate FiO2 02/01/17 05:55 128/73 (91) 02/01/17 00:15 Room Air 02/01/17 00:10 173/66 (101) 01/31/17 23:07 37.1 78 16 173/66 (101) 93 Room Air 01/31/17 21:51 146/69 (94) 01/31/17 20:50 81 174/66 (102) 01/31/17 16:50 36.8 78 18 149/66 (93) 94 Room Air 01/31/17 16:50 Room Air 01/31/17 15:52 36.9 77 16 94 01/31/17 15:48 Room Air 01/31/17 15:38 36.9 77 16 140/66 (90) 94 Room Air 01/31/17 11:46 Room Air 01/31/17 10:30 37.1 75 18 121/62 96 01/31/17 09:58 Room Air 01/31/17 09:30 37.0 71 16 117/55 96 01/31/17 09:00 37.0 71 16 110/50 96 01/31/17 08:53 37.1 74 15 104/50 93 01/31/17 08:41 37.2 78 11 125/55 97 01/31/17 08:28 36.5 87 18 121/54 (76) 96 Laboratory Results 24 Hours: Test 01/31/17 12:01 02/01/17 06:12 Hematocrit 24.3 % 23.5 % Hemoglobin 8.4 g/dL 8.2 g/dL White Blood Count 10.50 K/uL Red Blood Count 2.69 M/uL Mean Corpuscular Volume 87.4 fL Mean Corpuscular Hemoglobin 30.5 pg Mean Corpuscular Hemoglobin Concent 34.9 g/dl Platelet Count 126 K/uL Mean Platelet Volume 9.6 fL Neutrophils (%) (Auto) 71.4 % Lymphocytes (%) (Auto) 11.2 % Monocytes (%) (Auto) 15.0 % Eosinophils (%) (Auto) 1.7 % Basophils (%) (Auto) 0.2 % Neutrophils # (Auto) 7.50 K/uL Lymphocytes # (Auto) 1.18 K/uL Monocytes # (Auto) 1.57 K/uL Eosinophils # (Auto) 0.18 K/uL Basophils # (Auto) 0.02 K/uL Prothromb Time International Ratio 1.0 Prothrombin Time 11.1 SECONDS Assessment & Plan Assessment: POD #2 Left hip ORIF long troch nail Acute blood loss anemia Plan: PT/ OT- TTWB Left leg DVT proph- Lovenox D/C plans - Planning for [facility]. Anemia - 1 unit transfused Inhouse Planning Pain Management: Morphine, PO Tylenol, Oxy IR DVT Prophylaxis: TEDs, SCDs, Lovenox Discharge Planning Discharge Planning: uncertain ([facility] vs [facility]) Pain Management: PO Tylenol, Oxy IR DVT Prophylaxis: TEDs, Lovenox Therapy: Physical Therapy, Occupational Therapy
--- NOTE | 2017-02-01 08:07 | Consultant Recommendations ---
Die Mounter Recommendations Date of Service Feb 01, 2017. Die Mounter Recommendations U DISCHARGE INSTRUCTIONS: HIP FRACTURE SELF CARE INSTRUCTIONS: A. You are to ambulate with a walker or crutches for approximately 6 weeks. B. You are TOE TOUCH WEIGHT BEARING on your operative lower extremity for at least 4 - 6 weeks. C. Wear low heeled shoes with non-slip soles D. Be sure that your floors are free of things that could trip you throw rugs, electrical cords, and small objects. Avoid wet and waxed floors, especially with crutches/walker/cane. E. Try to walk several times a day with rest periods between. F. You may shower 48 hours after surgery and get the incision area wet, but DO NOT soak or submerge incision area in water. (No baths, swimming pools, hot tubs ) G. You may have a large, band-aid like dressing over your incision (Aquacel). This will remain on your incision for 7 days, and then can be removed. You CAN shower with this on. If incision is leaking through the dressing, please call the office . H. Do NOT apply soap or any ointment/lotions directly over incision. I. You may use ice as needed to operative site. SPECIAL CARE INSTRUCTIONS: VERY IMPORTANT TO READ AND REVIEW A. You may be at risk for phlebitis or blood clots. a. Wear surgical stockings (CRISTINA hose) for 2 weeks after surgery to improve circulation and reduce swelling. b. Take LOVENOX 40mg SQ daily for 4 weeks or as directed. This is your blood thinner. B. There are a few signs you need to watch for after you are home. Call [facility] at [phone] if you experience any of the following: a. If you have a temperature of 101 degrees or higher. b. Sudden increase in pain in your hip not relieved by rest or pain medication. c. Any fluid or drainage from the incision; redness of the incision. d. Shortness of breath or chest pain. C. Call your physician if you have any unanswered questions or concerns. D. Pain Medication: a. You will be prescribed pain medication upon discharge that should last till your first post-operative appointment. b. If you experience nausea and/or skin rash, discontinue this medication and contact our office for an alternative medication. c. Caution- narcotic pain medication can cause constipation. FOLLOW UP VISIT: Please call [facility] at [phone] to schedule a follow up appointment 10-14 days from the date of your surgery date.
[2017-02-01] MEDS: CHOLECALCIFEROL 1000 INTER.UNIT TAB PO SCH (08:26)
[2017-02-01] MEDS: ATORVASTATIN 20 MG TAB PO SCH (08:28)
[2017-02-01] MEDS: DOCUSATE SODIUM 100 MG CAP PO SCH ×2 (08:28→20:51)
[2017-02-01] MEDS: MULTIVITAMIN TAB PO SCH (08:28)
[2017-02-01] MEDS: CARVEDILOL 6.25 MG TAB PO SCH ×2 (08:28→20:51)
[2017-02-01] MEDS: ENOXAPARIN 40 MG/0.4 ML SYR SQ SCH (08:30)
[2017-02-01] MEDS ORDERED: RXC5 PO (12:11)
[2017-02-01] MEDS ORDERED: POLY335019 PO (12:11)
[2017-02-01] MEDS ORDERED: LVNIS40 SQ (12:11)
[2017-02-01] MEDS ORDERED: MOMLX PO (12:11)
[2017-02-01] MEDS: OXYCODONE HCL IR 5 MG TAB (IMMEDIATE RELEASE) PO PRN ×2 (12:11→20:51)
[2017-02-01] MEDS ORDERED: CLC100 PO (12:11)
[2017-02-01] MEDS ORDERED: ACET-24 PO (12:11)
[2017-02-01] MEDS ORDERED: VTMD1000 PO (12:12)
--- NOTE | 2017-02-01 12:21 | Discharge Instructions ---
Discharge Instructions Date of Service Feb 01, 2017. Admission Reason for Admission: Fall;Femur Fracture;Left Discharge Discharge Diagnosis / Problem: Left intertrochanteric hip fracture Discharge Goals Goal(s): Decrease discomfort, Improve function, Increase independence, Improve disease control Activity Recommendations Activity Limitations: per Instructions/Follow-up section . Instructions / Follow-Up Instructions / Follow-Up You were admitted to [facility] after a fall from ladder where you suffered a left intertrochanteric hip fracture. During your stay here you were treated with intravenous fluids, pain management and other supportive care. You underwent surgical fixation of the Left hip on 01/30/[address] Lara. Please refer to the orthopedic discharge instructions for specific recommendations. Medications: You should continue taking tylenol around the clock for the next 7 days Take oxycodone 5 mg every 4 hours as needed for breakthrough pain Continue taking Lovenox 40 mg subq injection for the next 4 weeks. Please discuss this with orthopedics at your follow up appointment. Your Vitamin D levels were low, so you were started on a supplement of Vit D. 2000 units daily Follow up: Contact [facility] orthopedics at [phone] to schedule a follow up appointment 10- 14 days from the date of your surgery date. Follow up with your PCP at [facility] within 24-48 hours of arrival there. Follow up with your family physician within 1 week after discharge from [facility]. Current Hospital Diet Patient's current hospital diet: Regular Diet Discharge Diet Recommended Diet: Regular Diet Procedures Procedures Performed: Left Trochanteric Nail Femur Pending Studies Studies pending at discharge: no Medical Emergencies . Who to Call and When: Medical Emergencies: If at any time you feel your situation is an emergency, please call 911 immediately. . Non-Emergent Contact Non-Emergency issues call your: Primary Care Provider Call Non-Emergent contact if: you have a fever, your pain is not controlled, your pain is worsening, your pain is unusual for you, your pain is concerning you, you have any medication questions You develop chest pain, shortness of breath, abdominal pain, lightheadedness, dizziness, palpitations or flutter, or if you have any other concerns regarding your health. . Past History Medical & Surgical History: (1) Fall (2) Femur fracture, left . "Provider Documentation" section prepared by Tg Zepeda. . Dietary Tech Recommendations Dietary Tech Recommendations: [facility] DISCHARGE INSTRUCTIONS: HIP FRACTURE SELF CARE INSTRUCTIONS: A. You are to ambulate with a walker or crutches for approximately 6 weeks. B. You are TOE TOUCH WEIGHT BEARING on your operative lower extremity for at least 4 - 6 weeks. C. Wear low heeled shoes with non-slip soles D. Be sure that your floors are free of things that could trip you throw rugs, electrical cords, and small objects. Avoid wet and waxed floors, especially with crutches/walker/cane. E. Try to walk several times a day with rest periods between. F. You may shower 48 hours after surgery and get the incision area wet, but DO NOT soak or submerge incision area in water. (No baths, swimming pools, hot tubs ) G. You may have a large, band-aid like dressing over your incision (Aquacel). This will remain on your incision for 7 days, and then can be removed. You CAN shower with this on. If incision is leaking through the dressing, please call the office . H. Do NOT apply soap or any ointment/lotions directly over incision. I. You may use ice as needed to operative site. SPECIAL CARE INSTRUCTIONS: VERY IMPORTANT TO READ AND REVIEW A. You may be at risk for phlebitis or blood clots. a. Wear surgical stockings (CRISTINA hose) for 2 weeks after surgery to improve circulation and reduce swelling. b. Take LOVENOX 40mg SQ daily for 4 weeks or as directed. This is your blood thinner. B. There are a few signs you need to watch for after you are home. Call [facility] at [phone] if you experience any of the following: a. If you have a temperature of 101 degrees or higher. b. Sudden increase in pain in your hip not relieved by rest or pain medication. c. Any fluid or drainage from the incision; redness of the incision. d. Shortness of breath or chest pain. C. Call your physician if you have any unanswered questions or concerns. D. Pain Medication: a. You will be prescribed pain medication upon discharge that should last till your first post-operative appointment. b. If you experience nausea and/or skin rash, discontinue this medication and contact our office for an alternative medication. c. Caution- narcotic pain medication can cause constipation. FOLLOW UP VISIT: Please call [facility] at [phone] to schedule a follow up appointment 10-14 days from the date of your surgery date. VTE Core Measure Inpt VTE Proph given/why not?: Enoxaparin (Lovenox)SQ, T.EPatrick. Jimy, SCD's
--- NOTE | 2017-02-01 13:31 | Discharge Summary ---
Discharge Summary Date of Service Feb 01, 2017. (Yancy Zepeda PA-C) 02/03/2017 (Haley Ramos MD) Discharge Summary Admission Date: Jan 29, 2017 at 17:27 Discharge Date: Feb 01, 2017 Discharge Disposition: Rehab Principal Diagnosis: Left intertrochanteric hip fracture Problems/Secondary Diagnoses: HTN, anemia, HLD, high grade stenosis of the SMA, CKD stage III, vitamin d deficiency Procedures: Femur 2 view 01/29/17 IMPRESSION: 1. There is a distracted, angulated, and mildly overriding fracture of the subtrochanteric left femur. 2. The remainder of the femur appears intact. 3. Soft tissue edema is present in the left upper thigh. Single view of pelvis 01/29/17 IMPRESSION: 1. Distracted and angulated subtrochanteric fracture of the left femur with overlying soft tissue edema. 2. No additional fracture is identified in the bony pelvis or right hip. 3. Osteopenia and degenerative change as above. Single view Chest 01/29/17 IMPRESSION: Mild cardiac enlargement with no acute cardiopulmonary abnormality. CT of the brain without IV contrast 01/29/17 FINDINGS: Brain parenchyma: There are age-related involutional changes noting mild subcortical and periventricular microangiopathic change. There is no hemorrhage, mass effect, or evidence of acute territorial ischemia by CT criteria. López-white matter is preserved. No extra-axial fluid collection is seen. Ventricles, sulci, cisterns: Prominent secondary to involutional change. Intracranial vasculature: There is atherosclerotic calcification of the cavernous carotid arteries. Calvarium: The skeletal structures are osteopenic. There is no depressed calvarial fracture. Sinuses and mastoids: The visualized paranasal sinuses are clear. The mastoid air cells are well pneumatized. Soft tissue calcification is incidentally noted involving the external auditory canal bilaterally. Orbits: The bony orbits are grossly intact. IMPRESSION: There is no hemorrhage, mass effect, or evidence of acute territorial ischemia by CT criteria. CT of the chest, abdomen, pelvis, without IV contrast 01/29/17 FINDINGS: CHEST: Thyroid: Imaged portions of the thyroid gland are normal in size and attenuation. Thoracic aorta: There is atherosclerotic calcification of the thoracic aorta, which is normal in caliber and demonstrates standard 3-vessel arch anatomy. No dissection is seen. Pulmonary vasculature: The pulmonary trunk is normal in caliber. There are no filling defects identified in the central pulmonary vessels to indicate pulmonary was. Note that this examination was not protocoled for evaluation of the pulmonary arteries. Heart: The heart is mildly enlarged and without pericardial effusion. There are coronary artery calcifications. Lungs and pleural spaces: There is no airspace consolidation, pleural effusion, or pneumothorax. The trachea and central airways are clear. Mediastinum: There is no mediastinal hematoma or lymphadenopathy. Krissy: Clear. Axillae: There is no axillary lymphadenopathy. Bony thorax: The skeletal structures are osteopenic. There are mild and age indeterminant superior endplate compression deformities of T4 and T6. The bony thorax is otherwise intact. No lytic or blastic lesions are identified. ABDOMEN AND PELVIS: Liver: The contrast-enhanced liver is normal in size, contour, and attenuation. There is no intrahepatic or ductal dilatation. The hepatic veins and portal veins are patent. Gallbladder: Unremarkable. Spleen: Normal in size and attenuation. Pancreas: Moderately atrophic and grossly unremarkable. Adrenal glands: Unremarkable. Kidneys: The contrast enhanced kidneys are atrophic and without hydronephrosis. The kidneys enhance symmetrically. Renal cysts measure up to 5.5 cm. Additional subcentimeter cortical hypodensities also likely represent cysts but are too small for definitive characterization. Abdominal vasculature: The abdominal aorta is normal in course and caliber noting moderate atherosclerotic calcification. 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 There is mild stenosis at the origin of the celiac artery with poststenotic dilatation which measures up to 10 mm. Bowel: The small bowel and colon are normal in course and caliber. There is mild colonic diverticulosis without CT evidence of acute diverticulitis. The appendix is well-visualized and normal. Peritoneum: There is no intraperitoneal free air or abdominal ascites. There is a small fat-containing umbilical hernia. Lymphadenopathy: None. Pelvic viscera: The prostate gland is enlarged and heterogeneous, measuring 5.5 cm in transverse diameter. There is median lobe hypertrophy. The bladder is normal as visualized. Skeletal structures: The skeletal structures are osteopenic. The lumbosacral spine and bony pelvis appear intact. There is a comminuted fracture of the left proximal femur. Nondistracted fracture is seen through the left femoral neck and extending through the intertrochanteric region. There is distracted fracture of the subtrochanteric left femur. No lytic or blastic lesions are seen. Moderate lumbosacral spondylosis is observed. Soft tissues: There is a large hematoma in the left thigh around the distracted fracture, and is likely at least partially intramuscular in location. This measures approximately 9.5 x 6 cm in maximum transaxial diameter. Small foci of active extravasation are seen within the hematoma on axial images #443, #464, and #482. These measure up to 1.7 cm. This is remote from the femoral artery. IMPRESSION: 1. The lungs are clear. No pneumothorax is seen. 2. Cardiomegaly. 3. There are mild and age indeterminant superior end plate compression deformities of T4 and T6. Correlate for point tenderness at these levels. The remainder the bony thorax appears intact. 4. There is no evidence of solid organ injury in the abdomen or pelvis. 5. The lumbosacral spine and bony pelvis are intact. 6. There is a comminuted fracture of the left proximal femur which involves the femoral neck, the intertrochanteric region, and the subtrochanteric region. The subtrochanteric fragments are distracted. 7. There is a large hematoma identified in the left thigh around the left femoral fracture. This is at least partially intramuscular, and there are several small foci of active extravasation identified which measure up to 1.7 cm. 8. Mild colonic diverticulosis without CT evidence of acute diverticulitis. 9. Prostatomegaly. 10. 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 11. There is mild stenosis at the origin of the celiac artery with poststenotic dilatation. 12. Additional findings as above. CT of cervical spine 01/29/17 IMPRESSION: 1. There is no evidence of fracture or subluxation involving the cervical spine. 2. Osteopenia and spondylotic change as above. Left femur 2 views routine 01/30/17 IMPRESSION: Image intensifier usage for left hip nailing procedure Consultations: Orthopedics (Yancy Zepeda PA-C) Admission Date: 01/29/2017 Discharge Date: Feb 03, 2017 Discharge Disposition: [facility] facility Principal Diagnosis: hip fracture Problems/Secondary Diagnoses: Anemia (Haley Ramos MD) Medication Reconciliation New Medications: Aspirin (Aspirin EC Low Dose) 81 Mg Ectab 81 MG PO DAILY for 30 Days, #30 TAB Polyethylene Glycol 3350 (Miralax) 1 Pow Pow 17 GM PO DAILY for 7 Days, #7 DOSE Acetaminophen (Sb Non-Aspirin Extra Stre) 500 Mg Tab 1000 MG PO Q8 for 7 Days, #42 TAB Cholecalciferol (Vitamin D3) 1,000 Inter.unit Tab 2000 INTER.UNIT PO QAM for 30 Days, #30 TAB Docusate Sodium (Docusate Sodium) 100 Mg Cap 100 MG PO BID for 7 Days, #14 CAP Enoxaparin (Enoxaparin Sodium) 40 Mg/0.4 Ml Inj 40 MG SQ QAM for 28 Days, #28 DOSE Magnesium Hydroxide (Milk of Magnesia) 30 Ml Susp 30 ML PO BID PRN for Constipation for 7 Days, #14 DOSE Oxycodone HCl (Oxycodone HCl) 5 Mg Tab 5 MG PO Q4H PRN for Pain for 7 Days, #28 TAB Continued Medications: Atorvastatin (Lipitor) 20 Mg Tab 20 MG PO DAILY, TAB Carvedilol (Coreg) 6.25 Mg Tab 9.375 MG PO BID, TAB DOSAGE IS 1.5 TABLETS TWICE DAILY Lisinopril (Zestril) 20 Mg Tab 20 MG PO BID, TAB Discontinued Medications: Aspirin (Aspirin) 325 Mg Tab 162.5 MG PO DAILY, TAB Discharge Exam The patient was seen and examined this morning. Pt reports doing overall well, he has some minimal pain in the left hip rated a 3/10. He denies any fevers, chills or sweats. He worked with PT yesterday. He denies any chest pain, sob, lightheadedness, dizziness, palpitations, flutter. ROS: Constitutional: No fever, sweats or chills Eyes: No diplopia, no worsening or blurred vision ENT: normal hearing, no trouble swallowing Respiratory: No cough, sputum, dyspnea at rest or on exertion Cardiovascular: No chest pain, tightness or palpitations Abdomen: No pain, nausea, vomiting, diarrhea or constipation Musculoskeletal: + left hip pain, no calf pain, swelling improving in the LLE. Neurologic: No weakness, numbness/tingling, or balance problems Psychiatric: No anxiety or depression Skin: No rash or itch Physical Exam General Appearance: WD/WN, no apparent distress Eyes: PERRL, EOMI ENT: hearing grossly normal, pharynx normal Neck: supple, no JVD Respiratory/Chest: chest non-tender, lungs clear, no respiratory distress, no accessory muscle use Cardiovascular: regular rate, rhythm, no JVD, no murmur Abdomen: no organomegaly, + pertinent finding (+hypoactive bowel sounds, slightly distended but nontender with palpation. ) Extremities: non-tender, + pertinent finding (+ L hip dressing c/d/i, + peripheral edema on the left. Sensation to light touch in tact) Neurologic/Psychiatric: alert, normal mood/affect, oriented x 3 Skin: normal color, warm/dry (Yancy Zepeda, GINGER) Pt is medically clear to discharge today to [facility]. Pt Hbg is stable at time of discharge. Pt denies any pain at present. Pt denies cp, sob, dizziness, palpitation. Review of Systems: Constitutional: No fever, No chills Respiratory: No cough, No sputum, No wheezing, No shortness of breath, No dyspnea on exertion, No dyspnea at rest Cardiovascular: No chest pain, No edema Abdomen: No pain, No nausea, No vomiting Genitourinary - Male: No hematuria, No urinary frequency, No urinary urgency Neurologic: No memory loss Integumentary: No rash Physical Exam: General Appearance: no apparent distress Eyes: EOMI Neck: supple, no adenopathy Respiratory/Chest: lungs clear, normal breath sounds, no respiratory distress Cardiovascular: regular rate, rhythm, no edema Abdomen / GI: normal bowel sounds, non tender, soft Extremities: no pedal edema Neurologic/Psychiatric: alert, normal mood/affect, oriented x 3 Skin: no rash Lymphatic: no adenopathy (Haley Ramos MD) Hospital Course H&P per Balta Venegas MD. History of Present Illness Source: patient, family, spouse The patient is an 81-year-old male who presents to the emergency department after a fall from from third step of a stepping stool. The patient does not remember the incident, he cannot say whether he mechanically fell to the ground or whether he had a preceding incident. He was reportedly unconscious for several minutes until EMS arrived. He has had instances in the past where he felt like he had lost his balance, but was usually able to catch himself and then stepdown off of the bladder. His primary complaint is left hip pain, and is unable to move his left leg without severe pain. He does not remember hitting his head, but has a bump over the left side of his forehead.81 yo M with PMHx of HTN, anemia, HLD, high grade stenosis of the SMA, who sustained a left hip fracture s/p fall off 3rd step of a step ladder last evening. Planned OR today with Dr. Lara Physical Exam Vital Signs Date Time Temp Pulse Resp B/P (MAP) Pulse Ox O2 Delivery O2 Flow Rate FiO2 01/29/17 17:00 71 18 174/95 94 Room Air 01/29/17 16:35 70 01/29/17 16:00 67 16 178/81 95 Room Air 01/29/17 15:00 67 16 167/73 99 Room Air 01/29/17 14:11 65 18 207/87 95 Room Air 01/29/17 13:23 57 17 190/82 98 Room Air 01/29/17 12:29 56 01/29/17 12:27 36.9 61 20 199/110 99 Room Air The patient is awake, well-developed and adequately nourished, alert and oriented 3, normocephalic and atraumatic, lying in bed and in no acute distress. HEENT--PERRL, EOMI, mucous membranes and oropharynx normal. Neck--supple, no JVD or bruits, thyroid normal, trachea midline, no adenopathy. Heart--normal S1 and S2, no extra beats, no murmurs, rubs or gallops. Lungs--clear bilaterally with good air movement, no respiratory distress, no accessory muscle use. Abdomen--normal bowel sounds and soft, nontender and nondistended, no hernias or masses, no organomegaly. Extremities--no cyanosis, clubbing or edema. There are good distal pulses b/l. Dermatologic--normal skin turgor, normal color, warm and dry, no abnormal lymph nodes, no rash. Neurologic--cranial nerves II through XII grossly intact, motor and sensory examination normal. Rheumatologic--left hip swelling and tenderness to touch. Psychiatric--normal affect. Hospital course: This is a 81 yo M admitted after a fall from a 3 step ladder, where he was unconscious for several minutes prior to EMS arrival. He was admitted for a left intertrocanteric hip fracture. The patient had CT of the head and brain completed which showed no acute abnormalities. The cause of syncope may have been due to vasovagal response. The patient delvoped and intramuscular hematoma and required a transfusion of 1 U PRBCs. He underwent surgical fixation on 01/[address] Lara. He was continued on Lovenox 40 mg auq at time of discharge for DVT ppx. Pt was discharged to [facility] on POD #2. Left proximal femur fracture with associated hematoma in left thigh with active extravasation- - s/p ORIF of L subtrochanteric and internal hip fracture on 01/30/[address] Lara - Resume aspirin 81 mg by mouth daily - Continue lovenox 40 mg subq x 4 weeks per ortho instructions for DVT ppx. - S/p transfusion 1 U PRBC 01/31/17 - Hematoma size decreased after surgery - Vit D level= 24.9, started on supplement Vit D 2000 U daily - PT/OT after surgery - Pain control with tylenol around the clock, 1 g Q8H, oxycodone 5 mg Q4H for breakthrough pain - Bowel regimen in place with dulcolax, miralax, scheduled and MOM and dulcolax supp prn Anemia - hemoglobin was 12.6 on admission, from acute blood loss secondary to fracture - type and crossed, 1U PRBC ordered 01/31 - Hgb improved to 10.5 at time of discharge Hypertension - Resume carvedilol 9.375 mg BID - Resume aspirin as noted above, resume lisionpril at time of discharge. 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 was 1.3 at time of admission and bumped to 1.8 in light of surgery and blood loss, now returned to baseline of 1.4, baseline seems to be 1.3-1.4 - Will encourage oral hydration, can stop NSS today. - Ok to resume lisinopril at time of discharge Hyperlipidemia- -continue atorvastatin 20 mg by mouth daily. High-grade stenosis of the SMA -no symptoms at this time. BPH- -monitor for symptoms while on IV fluids. DVT ppx: asa and lovenox subq Disposition: D/c to [facility] today Total Time Spent: Greater than 30 minutes This includes examination of the patient, discharge planning, medication reconciliation, and communication with other providers. (Yancy Zepeda, GINGER) Hospital course: This is a 81 yo M admitted after a fall from a 3 step ladder, where he was unconscious for several minutes prior to EMS arrival. He was admitted for a left intertrochanteric hip fracture. The patient had CT of the head and brain completed which showed no acute abnormalities. The cause of syncope may have been due to vasovagal response. The patient developed and intramuscular hematoma and required a transfusion of 1 U PRBCs. He underwent surgical fixation on 01/[address] Lara. He was continued on Lovenox 40 mg auq at time of discharge for DVT ppx. Pt was discharged to [facility] on POD #2. Left proximal femur fracture with associated hematoma in left thigh with active extravasation- - s/p ORIF of L subtrochanteric and internal hip fracture on 01/30/[address] Lara - Resume aspirin 81 mg by mouth daily - Continue lovenox 40 mg subq x 4 weeks per ortho instructions for DVT ppx. - S/p transfusion 1 U PRBC 01/31/17 - Hematoma size decreased after surgery - Vit D level= 24.9, started on supplement Vit D 2000 U daily - PT/OT after surgery - Pain control with tylenol around the clock, 1 g Q8H, oxycodone 5 mg Q4H for breakthrough pain - Bowel regimen in place with dulcolax, miralax, scheduled and MOM and dulcolax supp prn Anemia - hemoglobin was 12.6 on admission, from acute blood loss secondary to fracture - type and crossed, 1U PRBC ordered 01/31 - Discharge was held secondary to significant drop in Hgb. Today Hbg 7.3 we, transfused slowly one unit because of elevated Bp.Repeated Hgb 9.0 - Repeat H/H shows stable Hgb at 9.2 and 9.3, stable to discharge to [facility]. Hypertension - Resume carvedilol 9.375 mg BID - Resume aspirin as noted above, resume lisionpril at time of discharge. 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 was 1.3 at time of admission and bumped to 1.8 in light of surgery and blood loss, now returned to baseline of 1.4, baseline seems to be 1.3-1.4 - Will encourage oral hydration, can stop NSS today. - Ok to resume lisinopril at time of discharge Hyperlipidemia- -continue atorvastatin 20 mg by mouth daily. High-grade stenosis of the SMA -no symptoms at this time. BPH- -monitor for symptoms while on IV fluids. DVT SCd/CRISTINA GI prophylaxis protonix Continued [facility] stay due to: other (Anemia) Discharge planning: retirement facility Total Time Spent: Greater than 30 minutes (Haley Ramos MD) Discharge Instructions Please refer to the electronic Patient Visit Report (Discharge Instructions) for additional information. (Yancy Zepeda, GINGER) As per discharge instruction (Haley Ramos MD) Follow-Up Follow up with your Primary Care Provider within 1-2 weeks, an appointment has been requested for you Follow up with PCP at [facility] within 24-48 hours Follow up with orthopedics within 1-2 weeks after discharge. (Yancy Zepeda PA-C) Follow with PCP and ortho. (Haley Ramos MD) Additional Copies To Eusebio Rivera M.D.
[2017-02-01] MEDS ORDERED: ASPEC81 PO (14:21)
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
[2017-02-01 20:11] LABS: HEMATOCRIT 23.9 % (42-52)
[2017-02-02] VITALS (15 sets, daily range): BP systolic 135–176; BP diastolic 56–83; PULSE 66–78; TEMP 36.5–37; O2SAT 94–100
[2017-02-02] MEDS ORDERED: LISINOPRIL 20 MG TAB PO STA (01:24)
[2017-02-02] MEDS: ACETAMINOPHEN 500 MG TAB PO SCH ×3 (06:11→21:39)
[2017-02-02 06:54] LABS: BASO % 0.2 %; BASO ABS # 0.02 K/uL (0-0.2); EOS % 2.5 %; IG% 0.2 %; LYMPH % 17.2 %; LYMPH ABS # 1.53 K/uL (1.2-3.4); MEAN CELL VOLUME 87.9 fL (80-100); MEAN CORPUSCULAR HEMOGLOBIN 30.5 pg (25-34); MEAN CORPUSCULAR HGB CONC 34.8 g/dl (32-36); MEAN PLATELET VOLUME 9.5 fL (7.4-10.4); MONO % 17.2 %; NEUT % 62.7 %; PLATELET COUNT 152 K/uL (130-400); RED BLOOD COUNT 2.39 M/uL (4.7-6.1); WHITE BLOOD COUNT 8.89 K/uL (4.8-10.8)
[2017-02-02 07:27] LABS: BUN/CREATININE RATIO 23.6 (10-20); CREATININE 1.2 mg/dl (0.60-1.40); MAGNESIUM 2.2 mg/dl (1.8-2.4); POTASSIUM 3.5 mmol/L (3.5-5.1)
[2017-02-02 07:29] LABS: COMPLETE YES
--- NOTE | 2017-02-02 08:28 | Orthopedic Progress Note ---
Orthopedic Progress Note Date of Service Feb 02, 2017. Subjective Post OP Day: 3 Reports: feeling well Objective calves soft nontender, N/V intact, dressing C/D/I (Thigh swollen), toes mobile Date Time Temp Pulse Resp B/P (MAP) Pulse Ox O2 Delivery O2 Flow Rate FiO2 02/02/17 07:50 36.8 71 16 149/67 (94) 94 Room Air 02/02/17 01:47 77 162/69 (100) 02/01/17 23:51 78 189/72 (111) 02/01/17 23:49 77 168/70 (102) 02/01/17 23:47 80 200/73 (115) 02/01/17 23:35 Room Air 02/01/17 23:02 36.8 82 18 181/73 (109) 96 Room Air 02/01/17 20:50 83 144/64 (90) 02/01/17 15:37 36.8 74 18 166/67 (100) 95 Room Air 02/01/17 15:30 Room Air 02/01/17 13:22 112/64 (80) 02/01/17 13:15 96/58 (71) 02/01/17 13:10 71/38 (49) 02/01/17 12:04 36.8 69 18 167/76 (106) 96 Room Air Laboratory Results 24 Hours: Test 02/01/17 20:04 02/02/17 06:02 Hematocrit 23.9 % 21.0 % Hemoglobin 8.1 g/dL 7.3 g/dL White Blood Count 8.89 K/uL Red Blood Count 2.39 M/uL Mean Corpuscular Volume 87.9 fL Mean Corpuscular Hemoglobin 30.5 pg Mean Corpuscular Hemoglobin Concent 34.8 g/dl Platelet Count 152 K/uL Mean Platelet Volume 9.5 fL Neutrophils (%) (Auto) 62.7 % Lymphocytes (%) (Auto) 17.2 % Monocytes (%) (Auto) 17.2 % Eosinophils (%) (Auto) 2.5 % Basophils (%) (Auto) 0.2 % Neutrophils # (Auto) 5.57 K/uL Lymphocytes # (Auto) 1.53 K/uL Monocytes # (Auto) 1.53 K/uL Eosinophils # (Auto) 0.22 K/uL Basophils # (Auto) 0.02 K/uL Assessment & Plan Assessment: POD #2 Left hip ORIF long troch nail Acute blood loss anemia, H/H 7.3 today Plan: Med management- decreased H/H, will let medicine make determination to transfuse PT/ OT- TTWB Left leg DVT proph- Lovenox D/C plans - Planning for [facility] or [facility]. Anemia - 1 unit transfused Inhouse Planning Pain Management: Morphine, PO Tylenol, Oxy IR DVT Prophylaxis: TEDs, SCDs, Lovenox Discharge Planning Discharge Planning: uncertain ([facility] vs [facility]) Pain Management: PO Tylenol, Oxy IR DVT Prophylaxis: TEDs, Lovenox Therapy: Physical Therapy, Occupational Therapy
[2017-02-02] MEDS: ATORVASTATIN 20 MG TAB PO SCH (08:37)
[2017-02-02] MEDS: LISINOPRIL 20 MG TAB PO SCH ×2 (08:37→21:36)
[2017-02-02] MEDS: DOCUSATE SODIUM 100 MG CAP PO SCH ×2 (08:38→21:36)
[2017-02-02] MEDS: CHOLECALCIFEROL 1000 INTER.UNIT TAB PO SCH (08:39)
[2017-02-02] MEDS: CARVEDILOL 6.25 MG TAB PO SCH ×2 (08:39→21:37)
[2017-02-02] MEDS: MULTIVITAMIN TAB PO SCH (08:40)
[2017-02-02] MEDS: ENOXAPARIN 40 MG/0.4 ML SYR SQ SCH (09:00)
[2017-02-02] MEDS ORDERED: NURSING VERBAL MED ORDER ONE ×3 (09:15→18:00)
[2017-02-02] MEDS ORDERED: HydrALAZINE HCL 20 MG/ML VIAL IV. STA (13:05)
[2017-02-02] MEDS ORDERED: PANTOprazole SOD 40 MG TAB PO ONE (15:00)
[2017-02-02] MEDS: MAGNESIUM HYDROXIDE SUSP 30 ML UDC PO PRN (17:17)
[2017-02-02] MEDS: HydrALAZINE HCL 20 MG/ML VIAL IV. PRN (17:57)
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
[2017-02-03] MEDS: ACETAMINOPHEN 500 MG TAB PO SCH ×2 (05:58→13:52)
[2017-02-03 07:25] VITALS: BP 136/69; PULSE 69; TEMP 36.7; O2SAT 98
[2017-02-03] MEDS: LISINOPRIL 20 MG TAB PO SCH (08:23)
[2017-02-03] MEDS: DOCUSATE SODIUM 100 MG CAP PO SCH (08:23)
[2017-02-03] MEDS: CARVEDILOL 6.25 MG TAB PO SCH (08:23)
[2017-02-03] MEDS: CHOLECALCIFEROL 1000 INTER.UNIT TAB PO SCH (08:24)
[2017-02-03] MEDS: ATORVASTATIN 20 MG TAB PO SCH (08:24)
[2017-02-03] MEDS: MULTIVITAMIN TAB PO SCH (08:24)
--- NOTE | 2017-02-03 08:40 | Orthopedic Progress Note ---
Orthopedic Progress Note Date of Service Feb 03, 2017. Subjective Post OP Day: 3 Reports: feeling well Objective calves soft nontender, N/V intact, dressing C/D/I (thigh moderately swollen), toes mobile Date Time Temp Pulse Resp B/P (MAP) Pulse Ox O2 Delivery O2 Flow Rate FiO2 02/03/17 07:25 36.7 69 16 136/69 (91) 98 Room Air 02/02/17 23:45 Room Air 02/02/17 23:15 37.0 77 18 147/66 (93) 96 Room Air 02/02/17 21:30 76 167/69 (101) 02/02/17 18:40 72 163/72 (102) 02/02/17 17:50 77 170/83 (112) 02/02/17 17:00 Room Air 02/02/17 15:00 36.5 78 18 171/69 (103) 96 Room Air 02/02/17 13:33 36.7 69 16 165/66 100 02/02/17 13:07 170/75 02/02/17 12:39 36.7 66 16 169/73 98 02/02/17 12:16 36.6 71 16 157/70 99 02/02/17 11:45 36.8 70 176/72 98 02/02/17 10:54 36.7 70 16 162/70 96 02/02/17 10:43 36.7 69 16 135/71 96 02/02/17 10:20 36.8 71 18 135/56 Laboratory Results 24 Hours: Test 02/02/17 16:32 Hematocrit 26.0 % Hemoglobin 9.0 g/dL Assessment & Plan Assessment: POD #3 Left hip ORIF long troch nail Acute blood loss anemia improved s/p transfusion Plan: Med management- PT/ OT- TTWB Left leg DVT proph- Lovenox D/C plans - Planning for [facility] per medicine, ortho to sign off . Inhouse Planning Pain Management: Morphine, PO Tylenol, Oxy IR DVT Prophylaxis: TEDs, SCDs, Lovenox Discharge Planning Discharge Planning: uncertain ([facility] vs [facility]) Pain Management: PO Tylenol, Oxy IR DVT Prophylaxis: TEDs, Lovenox Therapy: Physical Therapy, Occupational Therapy
[2017-02-03] MEDS ORDERED: PANTOprazole SOD 40 MG TAB PO SCH (09:00)
[2017-02-03] MEDS: OXYCODONE HCL IR 5 MG TAB (IMMEDIATE RELEASE) PO PRN (11:29)
[2017-02-03 13:20] LABS: HEMATOCRIT 27.4 % (42-52)
[2017-02-03] MEDS: MAGNESIUM HYDROXIDE SUSP 30 ML UDC PO PRN (13:52)
[2017-02-03 14:24] VITALS: BP 136/69; PULSE 69; TEMP 36.7; O2SAT 98
== END 2017-02-03 15:05 | DRG 481 ==
LOC: EDBD 12:16 → C.EDC 12:17 → C.2E 17:27 → ENRESERV 17:33 → EDBEDREQSVC 17:38 → ENRESERV 17:45 → C.MSW 01-31 16:51
PROVIDERS: ADMIT Hospitalist; ATTEND Family Medicine
PROC: 0QS706Z Reposition Left Upper Femur with Intramedullary Internal Fixation Device, Open Approach (ICD-10-PCS; principal; 2017-01-30 12:00)
DX: S72.22XA Displaced subtrochanteric fracture of left femur, initial encounter for closed fracture (principal); K55.1 Chronic vascular disorders of intestine; D62 Acute posthemorrhagic anemia; S00.81XA Abrasion of other part of head, initial encounter; I12.9 Hypertensive chronic kidney disease with stage 1 through stage 4 chronic kidney disease, or unspecified chronic kidney disease; N18.3 Chronic kidney disease, stage 3 (moderate); E78.5 Hyperlipidemia, unspecified; N40.0 Benign prostatic hyperplasia without lower urinary tract symptoms; E55.9 Vitamin D deficiency, unspecified; Z79.82 Long term (current) use of aspirin; Z79.899 Other long term (current) drug therapy; W11.XXXA Fall on and from ladder, initial encounter; Y92.009 Unspecified place in unspecified non-institutional (private) residence as the place of occurrence of the external cause

== ENCOUNTER → 2017-02-11 | Outpatient (CLI) | payer OTHER, MEDICARE ==
[~2017-02-11] MED LIST changes: +ACET-24 PO; +ASPEC81 PO; -ASPI325T4 PO; +CLC100 PO; +LVNIS40 SQ; +MOMLX PO; +RXC5 PO; +VTMD1000 PO
--- NOTE | 2017-02-11 16:31 | DIAGNOSTIC IMAGING REPORT ---
CT OF THE HEAD WITHOUT CONTRAST CLINICAL HISTORY: Fall. Mental status change. COMPARISON STUDY: Head CT January 29, 2017. CT DOSE: 537.48 mGy.cm TECHNIQUE: Helical axial images of the head were obtained without IV contrast. Automated exposure control was utilized for the study. FINDINGS: No acute intracranial hemorrhage, midline shift or mass effect is present. The ventricular system is stable. The basilar cisterns are patent. There are no extra-axial collections. White matter hypodensity suggests small vessel disease. There are no findings to suggest acute dural sinus thrombosis or acute territorial infarct. There is no calvarial fracture. There is minimal mucosal thickening of the ethmoid sinuses. Mastoid air cells are clear. IMPRESSION: 1. No acute intracranial findings. 2. No calvarial fracture. Electronically signed by: Dakota Sarmiento M.D. 02/11/2017 4:29 PM Dictated Date/Time: 02/11/2017 4:26 PM
== END | disposition home or self-care (01) ==
LOC: C.CTS 16:08
PROVIDERS: ATTEND Internal Medicine
DX: R41.82 Altered mental status, unspecified (principal); Z91.81 History of falling

== ENCOUNTER 2017-07-03 10:20 | Day surgery (SDC) | payer OTHER, MEDICARE ==
[~2017-07-03] VITALS: Ht 157.5 cm; Wt 62.0 kg
[2017-07-03] MEDS ORDERED: LIDOCAINE HCL 1% 20 ML VIAL ONE (10:35)
[2017-07-03 10:52] VITALS: PULSE 60; TEMP 36.4; O2SAT 98; Ht 157.5 cm; Wt 62.0 kg
[2017-07-03] MEDS ORDERED: AMLO-114 PO (11:03)
[2017-07-03] MEDS ORDERED: CEFAZOLIN SOD 1 GM VIAL ONE (11:11)
--- NOTE | 2017-07-03 11:29 | Discharge Instructions ---
Discharge Instructions Date of Service Jul 03, 2017. Visit Reason for Visit: SyncopeSriali Discharge Discharge Diagnosis / Problem: syncope, sinus bradycardia Discharge Goals Goal(s): Improve function Activity Recommendations Activity Limitations: resume your previous activity Shower/Bathe: tomorrow Driving or Machine Use: no limitations Anesthesia . Post Anesthesia Instructions: If you have had General Anesthesia or IV Sedation: * Do not drive today. * Resume driving when surgeon permits. * Do not make important decisions or sign legal documents today. * Call surgeon for: 1. Temperature elevations greater than 101 degrees F. 2. Uncontrollable pain. 3. Excessive bleeding. 4. Persistent nausea and vomiting. 5. Medication intolerance (nausea, vomiting or rash). * For nausea and vomiting use only clear liquids such as: tea, soda, bouillon until nausea subsides, then gradually increase diet as tolerated. * If you have any concerns or questions, call your surgeon's office. If physician is unavailable and it is an emergency, call 911 or go to the nearest emergency room. . Instructions / Follow-Up Instructions / Follow-Up ACTIVITY RECOMMENDATIONS: * No restrictions SPECIAL CARE INSTRUCTIONS: * If bleeding occurs, apply direct pressure to area for 5 minutes. * Call your doctor if you have severe pain, fever, drainage or bleeding at site. * Keep dry for 24 hours. * Keep any scheduled doctor's appointment. * Implant Card - hand held device with website information given. SKIN IRRITATION: * You may experience some redness and/or swelling in the area where radiation was administered. If any skin irritation occurs, please contact your family physician. FOLLOW UP VISIT: Keep any scheduled doctor appointments. Diet Recommendations Recommended Home Diet: no limitations Procedures Procedures Performed: LINQ insertion Pending Studies Studies pending at discharge: no Medical Emergencies . Who to Call and When: Medical Emergencies: If at any time you feel your situation is an emergency, please call 911 immediately. . Non-Emergent Contact Non-Emergency issues call your: Avionics Systems Repairer . . "Provider Documentation" section prepared by Jenn Sal. .
[2017-07-03 11:44] VITALS: BP_SYST 171; BP_SYST 172; BP_DIAS 76; BP_DIAS 77; PULSE 58; TEMP 36.4; O2SAT 98
[2017-07-03 11:49] VITALS: BP 170/68
--- NOTE | 2017-07-03 12:11 | OPERATIVE REPORT ---
DATE OF OPERATION: 07/03/2017 PREOPERATIVE DIAGNOSIS: Syncope and sinus bradycardia. POSTOPERATIVE DIAGNOSIS: Same. PROCEDURE: LINQ insertion. SURGEON: Dr. Jenn Sal. PHOTOGRAPH MOUNTER: None. ANESTHESIA: Local 10 mL of 1% lidocaine. COMPLICATIONS: None. CONDITION: Stable. BLOOD LOSS: Minimal. URINE OUTPUT: N/A SPECIMENS: None. FINDINGS: See below. DRAINS: None. INDICATIONS: This is an 81-year-old male who has a past medical history of chronic kidney disease stage III, hypertension, carotid artery stenosis. The right carotid artery is 50-69%, left carotid arteries less than 50% as well as sinus bradycardia. He had 2 syncopal events of unclear etiology and is recommended a LINQ insertion for concern that the syncopal events were due to arrhythmia, possible bradycardia induced. CONSENT: Consent was obtained prior to the patient going into the electrophysiology lab. Patient was informed of the risks, benefits and alternatives to the procedure. Risks include but not limited to bleeding and infection. The patient understood these risks and agreed to undergo the procedure as planned. Informed consent was obtained. DESCRIPTION OF THE PROCEDURE: The patient was brought into the electrophysiology lab in a fasting state. He was connected to continuous groundwater monitoring technician. A timeout was performed to ensure patient's identity and procedure correctly. The patient was prepped and draped over the left chest wall in normal surgical standard fashion. [place] precautions were maintained throughout the procedure. Eight mL of 1% lidocaine were given for local anesthesia in the fourth intercostal space to the left of the sternal border then using the LINQ insertion kit the LINQ was inserted and an interrupted suture with 4-0 Monocryl followed by a running suture of 4-0 Monocryl was placed to approximate the edges of the incision and Dermabond was placed. EQUIPMENT: The LINQ is a [employer] Reveal LINQ LNQ11, serial number [id number]. The R-waves are 0.64 millivolts. The settings are tachy 146 beats per minute for 16 intervals, marisela 30 beats per minute for 4 intervals or pause of 3 seconds. IMPRESSION: Successful LINQ insertion due to recurrent syncope and sinus bradycardia. PLAN: Okay to discharge home. He can shower tomorrow. No other restrictions. He should follow up in our [facility] device office for a wound check and a device check in 1 week. I attest to the content of the Intraoperative Record and any orders documented therein. Any exceptions are noted below. MTDD
== END 2017-07-03 12:02 | disposition home or self-care (01) ==
LOC: C.ACU 10:20
PROVIDERS: ATTEND Internal Medicine
DX: R00.1 Bradycardia, unspecified (principal); R55 Syncope and collapse; I12.9 Hypertensive chronic kidney disease with stage 1 through stage 4 chronic kidney disease, or unspecified chronic kidney disease; N18.3 Chronic kidney disease, stage 3 (moderate); Z79.82 Long term (current) use of aspirin; Z79.899 Other long term (current) drug therapy